=== PATIENT | male | born 1950 | race Caucasian/White ===

== ENCOUNTER 2017-05-09 17:22 | Inpatient (IN) | payer MEDICARE ==
[~2017-05-09] VITALS: Ht 190.5 cm; Wt 105.8 kg
--- NOTE | 2017-05-09 17:48 | EKG ---
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
--- NOTE | 2017-05-09 17:49 | PHYS DOC ---
General Chief Complaint: PSYCH EVALUATION Stated Complaint: PSYCH EVALUATION Time Seen by MD: 17:26 Source: patient, family Exam Limitations: no limitations Problems: (CATALINA LEON DO) Time Seen by MD: 18:10 Problems: (TATY PAL MD) History of Present Illness Initial Comments Patient is a 66-year-old male brought to the ED by his spouse for medical clearance and possible [facility] admission. Patient's spouse is his DPOA, she reports that he's just been released from incarceration for assaulting her and their daughter. She has brought the patient for testing to see if there might be an underlying treatable psychiatric condition to explain this behavior. The patient is unaware of why he 's been brought here but he is calm and cooperative at least initially in the emergency department. He is in no apparent distress and denies any complaints. Timing/Duration: other Severity: severe Modifying Factors: improves with other Associated Symptoms: denies symptoms (CATALINA LEON DO) Allergies: Coded Allergies: No Known Drug Allergies (Unverified , 05/09/17) Past Medical History Medical History: other (Alzheimer's dementia) Surgical History: noncontributory (CATALINA LEON DO) Social History Smoker: non-smoker Alcohol: none Drugs: none (CATALINA LEON DO) Review of Systems Constitutional: denies chills, denies fever Respiratory: denies cough, denies shortness of breath Cardiovascular: denies chest pain, denies syncope Gastrointestinal: denies diarrhea, denies vomiting Musculoskeletal: denies back pain, denies neck pain Psychiatric/Neurological: see HPI, denies headache, denies paresthesia, denies weakness (CATALINA LEON DO) Physical Exam General Appearance: WD/WN, no apparent distress Eyes: bilateral eye normal inspection, bilateral eye PERRL, bilateral eye EOMI Ear, Nose, Throat: hearing grossly normal, normal ENT inspection Neck: non-tender, supple Respiratory: normal breath sounds, no respiratory distress Cardiovascular: normal peripheral pulses, regular rate, rhythm Gastrointestinal: non tender, soft Back: no CVA tenderness, no vertebral tenderness Neurologic/Psychiatric: 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 1804: Medical clearance workup initiated, results are not back at the end of my shift. Patient will be signed out to Dr. Borges, see her documentation for further results and the patient's disposition. (CATALINA LEON DO) Orders, Labs, Meds Assumed care from Dr. Leon at 1800. Labs as above were unremarkable. Patient accepted to [facility] by Dr. Vazquez. The patient is being transferred for admission & he is in stable condition. Taty Pal MD (TATY PAL MD) CATALINA LEON DO May 09, 2017 17:49 TATY PAL MD May 09, 2017 19:37
[2017-05-09 18:03] LABS: BASO # 0.1 x10^3/uL (0.0-0.2); BASO % 1 % (0-3); EOS # 0.1 x10^3/uL (0.0-0.7); EOS % 1 % (0-3); HEMATOCRIT 44.9 % (39.0-53.0); HEMOGLOBIN 15.4 g/dL (13.0-17.5); LYMPH # 1.6 x10^3/uL (1.0-4.8); LYMPH % 16 % (24-48); MEAN CORPUSCULAR HEMOGLOBIN 29 pg (25-35); MEAN CORPUSCULAR HGB CONC 34 g/dL (31-37); MEAN CORPUSCULAR VOLUME 84 fL (79-100); MONO # 0.6 x10^3/uL (0.0-1.1); MONO % 6 % (0-9); NEUT # 7.6 x10^3uL (1.8-7.7); NEUT % 76 % (31-73); PLATELET COUNT 337 x10^3/uL (140-400); RED BLOOD COUNT 5.34 x10^6/uL (4.30-5.70); RED CELL DISTRIBUTION WIDTH 13.9 % (11.5-14.5)
[2017-05-09 18:14] LABS: ALBUMIN 3.6 g/dL (3.4-5.0); ALBUMIN/GLOBULIN RATIO 0.8 (1.0-1.7); CALCIUM 9.2 mg/dL (8.5-10.1); CREATININE 1.2 mg/dL (0.7-1.3); GFR 60.4; POTASSIUM 4.1 mmol/L (3.5-5.1); TOTAL BILIRUBIN 0.5 mg/dL (0.2-1.0); TOTAL PROTEIN 8.1 g/dL (6.4-8.2)
[2017-05-09 19:20] LABS: AMPHETAMINE/METHAMPHETAMINE NEG (NEG); BARBITURATES NEG (NEG); BENZODIAZEPINES NEG (NEG); CANNABINOIDS NEG (NEG); COCAINE NEG (NEG); METHADONE NEG (NEG); OPIATES NEG (NEG); PHENCYCLIDINE NEG (NEG)
[2017-05-09 19:38] LABS: BILIRUBIN,URINE NEG (NEG); CLARITY,URINE HAZY; COLOR,URINE AMBER; GLUCOSE,URINE NEG (NEG); NITRITE,URINE NEG (NEG); UROBILINOGEN,URINE 0.2 mg/dL (0.2 mg/dL)
[2017-05-09 19:39] LABS: BACTERIA,URINE 0 /HPF (0-FEW); RBC,URINE OCC /HPF (0-2); SQUAMOUS EPITHELIAL CELL,UR FEW /LPF
[2017-05-09 20:07] VITALS: BP 154/73
[2017-05-09] MEDS ORDERED: ACETAMINOPHEN 325 MG TABLET PO PRN (23:00)
[2017-05-09] MEDS ORDERED: MAG HYDROX/AL HYDROX/SIMETH 30 ML ORAL.SUSP PO PRN (23:00)
[2017-05-09] MEDS ORDERED: METHYL SALICYLATE/MENTHOL TOPICAL OINTMENT 29GM TUBE. TP PRN (23:00)
[2017-05-09] MEDS ORDERED: MAGNESIUM HYDROXIDE 2,400 MG/30 ML ORAL.SUSP. PO PRN (23:00)
[2017-05-10] MEDS ORDERED: RIVA1PAT23 TD (00:58)
[2017-05-10] MEDS ORDERED: MEMA10TA PO (00:58)
[2017-05-10] MEDS ORDERED: QUET100T4 PO (00:58)
[2017-05-10] MEDS ORDERED: ESCITALOPRAM OX10 MG PO (00:58)
[2017-05-10] MEDS ORDERED: DIVA500T2 PO (00:58)
[2017-05-10] MEDS ORDERED: QUET50TA5 PO (00:58)
[2017-05-10 06:11] VITALS: BP 148/67
--- NOTE | 2017-05-10 14:17 | HP ---
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 He lives at home with his and was admitted via the ER from [facility]. Apparently, he has been having increase in his anger and pushing and shoving his and daughter. Day before yesterday the family called 911, police came, he was handcuffed and sent to group home. He spent the night in group home and the police came and told them something had to be done as far as him being in group home. So they brought him for evaluation to the Senior Behavioral Unit. 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 ALLERGIES: None. MEDICATIONS: Exelon 13.3 mg daily, Namenda 10 mg twice a day, Seroquel 50 mg daily, Seroquel 100 mg at bedtime, Lexapro 10 mg daily, Depakote 500 mg twice a day. IMMUNIZATIONS: The patient refused pneumonia and flu shot. SOCIAL HISTORY: The patient had numerous jobs including working for [employer] for many years, he stopped working in 2005. He no longer drives. Does not smoke or drink. He did graduate from [employer] in [place], [place] and has an extensive football playing history. REVIEW OF SYSTEMS: Other than some bilateral knee pain which is chronic from football playing, he has no specific complaints. 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 OBJECTIVE: VITAL SIGNS: Blood pressure 148/67, pulse 81, respirations 16, temperature 98.6, pulse ox 96% on room air. Yesterday's blood pressure 126/55. Height is 75 inches, weight 229.19 pounds. GENERAL: Very tall gentleman, in no acute distress. Very calm, very cooperative. HEENT: Hearing is intact. Eyes were clear. Vision is intact. He is color-blind. Nose was patent. His throat was clear. NECK: Supple. LUNGS: Clear to auscultation. CARDIOVASCULAR: Regular rhythm and rate. ABDOMEN: Soft, nontender. EXTREMITIES: Without edema. MUSCULOSKELETAL: Extensive osteoarthritic changes of both knees noted. He passes get up and go test, ambulates without difficulty. NEUROLOGIC: Cranial nerves are intact. Cognitive ability, the patient's remote memory is excellent. His short term memory is not. LABORATORY DATA: CBC is normal. Chemistry is essentially normal. Urinalysis, negative. Drug screen, negative. ASSESSMENT: 1. A 66-year-old male with anger issues and impulse control issues. 2. 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 3. Osteoarthritis of the knees. PLAN: Follow along with Dr. Vazquez. Treat his medical conditions. PERCY ANSARI DO DR: ROBIN/abdoulaye JOB#: [id number] / [id number]
[2017-05-10 14:36] LABS: THYROID STIM HORMONE (TSH) 1.507 uIU/mL (0.358-3.740)
[2017-05-10 16:07] VITALS: BP 109/65
--- NOTE | 2017-05-10 18:27 | PDOC ---
Exam Note: Zeb Note: Please also refer to the separate dictated note~for this date of service dictated separately.~Patient seen individually. Discussed the patient with Nursing staff reviewed the chart.~Reviewed interim history and current functioning. Reviewed vital signs,~Labs/ Radiology~and current medications noted below. Continue current treatment with the changes noted in the dictated addendum note Assessment: Vital Signs: Vital Signs Date Time Temp Pulse Resp B/P (MAP) Pulse Ox O2 Delivery O2 Flow Rate FiO2 05/10/17 16:07 97.5 61 20 109/65 (80) 99 Room Air I&O Intake and Output 05/10/17 07:00 Intake Total 120 ml Balance 120 ml Intake Oral 120 ml # Bowel Movements 1 Current Medications: Meds: Current Medications Olanzapine (ZyPREXA ZYDIS) 2.5 mg PRN Q2HR PRN PO psychosis/ agitation; Start 05/09/17 at 21:30 Acetaminophen (Tylenol) 650 mg PRN Q6HRS PRN PO PAIN / TEMP; Start 05/09/17 at 23:00 Multi-Ingredient Ointment (Analgesic [place]) 1 denise PRN QID PRN TP MUSCLE PAIN; Start 05/09/17 at 23:00 Al Hydroxide/Mg Hydroxide (Mylanta Plus Xs) 15 ml PRN AFTMEALHC PRN PO DYSPEPSIA; Start 05/09/17 at 23:00 Magnesium Hydroxide (Milk Of Magnesia) 2,400 mg PRN QHS PRN PO CONSTIPATION; Start 05/09/17 at 23:00 Memantine (Namenda) 10 mg BID PO ; Start 05/10/17 at 21:00 Quetiapine Fumarate (SEROquel) 50 mg DAILY PO ; Start 05/11/17 at 09:00 Quetiapine Fumarate (SEROquel) 100 mg HS PO ; Start 05/10/17 at 21:00 Rivastigmine (Exelon 13.3mg) 1 patch DAILY TD ; Start 05/11/17 at 09:00 Divalproex Sodium (Depakote Er) 500 mg BID PO ; Start 05/10/17 at 21:00 Citalopram Hydrobromide (CeleXA) 20 mg DAILY PO ; Start 05/11/17 at 09:00 Active Scripts Active Reported EXELON 9.5mg/24hr (Rivastigmine) 1 Each Patch.td24 13.3 Patch TD DAILY Depakote (Divalproex Sodium) 500 Mg Tablet.dr 500 Mg PO BID Escitalopram Oxalate 10 Mg Tablet 10 Mg PO DAILY Seroquel (Quetiapine Fumarate) 100 Mg Tablet 100 Mg PO HS Seroquel (Quetiapine Fumarate) 50 Mg Tablet 50 Mg PO DAILY Namenda (Memantine Hcl) 10 Mg Tablet 10 Mg PO BID I have reviewed the current psychotropics carefully including drug interactions. Risk benefit ratio favors no change other than as noted in my dictated progress note. 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
--- NOTE | 2017-05-10 20:02 | PDOC ---
Exam Note: Zeb Note: Please also refer to the separate dictated note~for this date of service dictated separately.~Patient seen individually. Discussed the patient with Nursing staff reviewed the chart.~Reviewed interim history and current functioning. Reviewed vital signs,~Labs/ Radiology~and current medications noted below. Continue current treatment with the changes noted in the dictated addendum note Assessment: Vital Signs: Vital Signs Date Time Temp Pulse Resp B/P (MAP) Pulse Ox O2 Delivery O2 Flow Rate FiO2 05/10/17 16:07 97.5 61 20 109/65 (80) 99 Room Air I&O Intake and Output 05/10/17 07:00 Intake Total 120 ml Balance 120 ml Intake Oral 120 ml # Bowel Movements 1 Current Medications: Meds: Current Medications Olanzapine (ZyPREXA ZYDIS) 2.5 mg PRN Q2HR PRN PO psychosis/ agitation; Start 05/09/17 at 21:30 Acetaminophen (Tylenol) 650 mg PRN Q6HRS PRN PO PAIN / TEMP; Start 05/09/17 at 23:00 Multi-Ingredient Ointment (Analgesic [place]) 1 denise PRN QID PRN TP MUSCLE PAIN; Start 05/09/17 at 23:00 Al Hydroxide/Mg Hydroxide (Mylanta Plus Xs) 15 ml PRN AFTMEALHC PRN PO DYSPEPSIA; Start 05/09/17 at 23:00 Magnesium Hydroxide (Milk Of Magnesia) 2,400 mg PRN QHS PRN PO CONSTIPATION; Start 05/09/17 at 23:00 Memantine (Namenda) 10 mg BID PO ; Start 05/10/17 at 21:00 Quetiapine Fumarate (SEROquel) 50 mg DAILY PO ; Start 05/11/17 at 09:00 Quetiapine Fumarate (SEROquel) 100 mg HS PO ; Start 05/10/17 at 21:00 Rivastigmine (Exelon 13.3mg) 1 patch DAILY TD ; Start 05/11/17 at 09:00 Divalproex Sodium (Depakote Er) 500 mg BID PO ; Start 05/10/17 at 21:00 Citalopram Hydrobromide (CeleXA) 20 mg DAILY PO ; Start 05/11/17 at 09:00 Active Scripts Active Reported EXELON 9.5mg/24hr (Rivastigmine) 1 Each Patch.td24 13.3 Patch TD DAILY Depakote (Divalproex Sodium) 500 Mg Tablet.dr 500 Mg PO BID Escitalopram Oxalate 10 Mg Tablet 10 Mg PO DAILY Seroquel (Quetiapine Fumarate) 100 Mg Tablet 100 Mg PO HS Seroquel (Quetiapine Fumarate) 50 Mg Tablet 50 Mg PO DAILY Namenda (Memantine Hcl) 10 Mg Tablet 10 Mg PO BID I have reviewed the current psychotropics carefully including drug interactions. Risk benefit ratio favors no change other than as noted in my dictated progress note. Diagnosis: Problems: (1) Dementia with behavioral disturbance (2) Anxiety disorder (3) Impulse control disorder (4) Dementia, vascular, with depression (5) Dementia, vascular, with delusions (6) Dementia in Alzheimer's disease with delusions (7) Dementia due to head trauma MALENA ERVIN MD May 10, 2017 20:02
[2017-05-10 20:14] LABS: T3 TOTAL 108 ng/dL (71-180); THYROXINE 7.4 ug/dL (4.5-12.0)
[2017-05-10] MEDS: QUEtiapine 100 MG TABLET. PO SCH (20:47)
[2017-05-10] MEDS: MEMANTINE 10 MG TABLET. PO SCH (20:47)
[2017-05-10] MEDS: DIVALPROEX 125 MG CAP.SPRINK PO SCH (20:47)
[2017-05-10] MEDS ORDERED: DIVALPROEX ER 500 MG TAB.ER.24H PO SCH (21:00)
--- NOTE | 2017-05-10 21:24 | HP ---
ADMIT DATE: 05/10/2017 PSYCHIATRIC ADMISSION HISTORY/EVALUATION This note covers elements not covered in my initial note of 05/10/2017. IDENTIFYING DATA: The patient is a 66-year-old male referred to us from the Emergency Room at [facility] where he presented from having spent overnight in [facility] after police were called to the home and the patient was pushing and shoving his and daughter. Family had called 911 and he was taken to [facility] then brought here. 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 He has been paranoid, delusional, suspicious, and aggressive. He has failed outpatient psychiatric interventions resulting in this referral. CHIEF COMPLAINT: "I don't get angry unless there is a reason to. I know there could be two sides to it." HISTORY OF PRESENT ILLNESS: The patient has a history of chronic traumatic encephalopathy. He has been residing at home with his and daughter, and more recently getting paranoid, extremely labile, irritable, angry, aggressive, disruptive. No clear history of bipolar disorder, suicidal or homicidal ideation. Memory especially for short term events is progressively worsening. PAST PSYCHIATRIC HISTORY: As above. The patient has seen Dr. Casey Wilson in the past for outpatient psychiatric care. PAST MEDICAL HISTORY: Positive for knee scopes, right bicep tendon repair, mastoidectomy. ACCU-CHEKS: None. DRUG ALLERGIES: Negative. CODE STATUS: Full code. Ambulates unassisted. UA is negative. CURRENT PSYCHOTROPICS: Exelon patch 13.3 mg a day, Namenda 10 mg b.i.d., Seroquel 50 mg daily and 100 mg at bedtime, Lexapro 10 mg a day, Depakote 500 mg b.i.d., Zyprexa was added p.r.n. FAMILY HISTORY: Noncontributory. SOCIAL HISTORY: Noted. 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 No alcohol or drug abuse history. No physical, sexual, or elder abuse history. Not known to be a perpetrator. REACTION TO HOSPITALIZATION: The patient accepting of it. ASSETS: Supportive family. MENTAL STATUS EXAMINATION: The patient was seen individually evening of 05/10/2017. He thought he was in [place], [place]. Knew the year was 2016, unaware of the month or the date. Able to spell world, forward no error, backward no errors. Able to do five steps and serial 7's. Short term memory nevertheless is impaired. Speech coherent. Thought processes goal directed. Mood somewhat dysphoric, suspicious. No active suicidal or homicidal ideation. Valproic acid level is awaited. 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 Rest unchanged as above. PLAN: Admit to Geropsychiatry Unit at [facility]. I will see the patient daily individually from a psychiatric standpoint, continue current psychotropics, observe baseline, get records from Dr. Wilson. Make further adjustments as clinically indicated. MAN Ajay ERVIN MD DR: BRANDY/abdoulaye JOB#: [id number] / [id number]
[2017-05-11 05:10] LABS: HEMOGLOBIN A1C 5.4 % (4.8-5.6)
[2017-05-11 06:04] VITALS: BP 134/73
[2017-05-11] MEDS: MEMANTINE 10 MG TABLET. PO SCH ×2 (08:25→19:55)
[2017-05-11] MEDS: DIVALPROEX 125 MG CAP.SPRINK PO SCH ×2 (08:25→19:55)
[2017-05-11] MEDS: CITALOPRAM 20 MG TABLET. PO SCH (08:29)
[2017-05-11] MEDS: QUEtiapine 50 MG TABLET. PO SCH (08:29)
[2017-05-11] MEDS: RIVASTIGMINE 13.3MG PATCH. TD SCH (08:29)
[2017-05-11 16:05] VITALS: BP 126/72
--- NOTE | 2017-05-11 17:55 | PDOC ---
Exam Note: Zeb Note: Please also refer to the separate dictated note~for this date of service dictated separately.~Patient seen individually. Discussed the patient with Nursing staff reviewed the chart.~Reviewed interim history and current functioning. Reviewed vital signs,~Labs/ Radiology~and current medications noted below. Continue current treatment with the changes noted in the dictated addendum note Assessment: Vital Signs: Vital Signs Date Time Temp Pulse Resp B/P (MAP) Pulse Ox O2 Delivery O2 Flow Rate FiO2 05/11/17 16:05 97.2 70 20 126/72 (90) 97 05/10/17 16:07 Room Air I&O Intake and Output 05/11/17 06:59 Intake Total 1080 ml Balance 1080 ml Intake Oral 1080 ml Current Medications: Meds: Current Medications Olanzapine (ZyPREXA ZYDIS) 2.5 mg PRN Q2HR PRN PO psychosis/ agitation; Start 05/09/17 at 21:30 Acetaminophen (Tylenol) 650 mg PRN Q6HRS PRN PO PAIN / TEMP; Start 05/09/17 at 23:00 Multi-Ingredient Ointment (Analgesic [place]) 1 denise PRN QID PRN TP MUSCLE PAIN; Start 05/09/17 at 23:00 Al Hydroxide/Mg Hydroxide (Mylanta Plus Xs) 15 ml PRN AFTMEALHC PRN PO DYSPEPSIA; Start 05/09/17 at 23:00 Magnesium Hydroxide (Milk Of Magnesia) 2,400 mg PRN QHS PRN PO CONSTIPATION; Start 05/09/17 at 23:00 Memantine (Namenda) 10 mg BID PO Last administered on 05/11/17 08:25; Start 05/10/17 at 21:00 Quetiapine Fumarate (SEROquel) 50 mg DAILY PO Last administered on 05/11/17 08:29; Start 05/11/17 at 09:00 Quetiapine Fumarate (SEROquel) 100 mg HS PO Last administered on 05/10/17 20: 47; Start 05/10/17 at 21:00 Rivastigmine (Exelon 13.3mg) 1 patch DAILY TD Last administered on 05/11/17 08:29; Start 05/11/17 at 09:00 Divalproex Sodium (Depakote Er) 500 mg BID PO ; Start 05/10/17 at 21:00; Stop 05/10/17 at 21:00; Status DC Citalopram Hydrobromide (CeleXA) 20 mg DAILY PO Last administered on 08:29; Start 05/11/17 at 09:00 Divalproex Sodium (Depakote Sprinkles) 500 mg BID PO Last administered on 05/11 08:25; Start 05/10/17 at 21:00 Vitamin D (Vitamin D3) 2,000 unit DAILY PO ; Start 05/12/17 at 09:00 Active Scripts Active Reported EXELON 9.5mg/24hr (Rivastigmine) 1 Each Patch.td24 13.3 Patch TD DAILY Depakote (Divalproex Sodium) 500 Mg Tablet.dr 500 Mg PO BID Escitalopram Oxalate 10 Mg Tablet 10 Mg PO DAILY Seroquel (Quetiapine Fumarate) 100 Mg Tablet 100 Mg PO HS Seroquel (Quetiapine Fumarate) 50 Mg Tablet 50 Mg PO DAILY Namenda (Memantine Hcl) 10 Mg Tablet 10 Mg PO BID I have reviewed the current psychotropics carefully including drug interactions. Risk benefit ratio favors no change other than as noted in my dictated progress note. 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
[2017-05-11] MEDS: QUEtiapine 100 MG TABLET. PO SCH (19:56)
--- NOTE | 2017-05-11 19:59 | PDOC ---
Exam Note: Zeb Note: Please also refer to the separate dictated note~for this date of service dictated separately.~Patient seen individually. Discussed the patient with Nursing staff reviewed the chart.~Reviewed interim history and current functioning. Reviewed vital signs,~Labs/ Radiology~and current medications noted below. Continue current treatment with the changes noted in the dictated addendum note Assessment: Vital Signs: Vital Signs Date Time Temp Pulse Resp B/P (MAP) Pulse Ox O2 Delivery O2 Flow Rate FiO2 05/11/17 16:05 97.2 70 20 126/72 (90) 97 05/10/17 16:07 Room Air I&O Intake and Output 05/11/17 07:00 Intake Total 1080 ml Balance 1080 ml Intake Oral 1080 ml Current Medications: Meds: Current Medications Olanzapine (ZyPREXA ZYDIS) 2.5 mg PRN Q2HR PRN PO psychosis/ agitation; Start 05/09/17 at 21:30 Acetaminophen (Tylenol) 650 mg PRN Q6HRS PRN PO PAIN / TEMP; Start 05/09/17 at 23:00 Multi-Ingredient Ointment (Analgesic [place]) 1 denise PRN QID PRN TP MUSCLE PAIN; Start 05/09/17 at 23:00 Al Hydroxide/Mg Hydroxide (Mylanta Plus Xs) 15 ml PRN AFTMEALHC PRN PO DYSPEPSIA; Start 05/09/17 at 23:00 Magnesium Hydroxide (Milk Of Magnesia) 2,400 mg PRN QHS PRN PO CONSTIPATION; Start 05/09/17 at 23:00 Memantine (Namenda) 10 mg BID PO Last administered on 05/11/17 19:55; Start 05/10/17 at 21:00 Quetiapine Fumarate (SEROquel) 50 mg DAILY PO Last administered on 05/11/17 08:29; Start 05/11/17 at 09:00 Quetiapine Fumarate (SEROquel) 100 mg HS PO Last administered on 05/11/17 19: 56; Start 05/10/17 at 21:00 Rivastigmine (Exelon 13.3mg) 1 patch DAILY TD Last administered on 05/11/17 08:29; Start 05/11/17 at 09:00 Divalproex Sodium (Depakote Er) 500 mg BID PO ; Start 05/10/17 at 21:00; Stop 05/10/17 at 21:00; Status DC Citalopram Hydrobromide (CeleXA) 20 mg DAILY PO Last administered on 08:29; Start 05/11/17 at 09:00 Divalproex Sodium (Depakote Sprinkles) 500 mg BID PO Last administered on 05/11 19:55; Start 05/10/17 at 21:00 Vitamin D (Vitamin D3) 2,000 unit DAILY PO ; Start 05/12/17 at 09:00 Buspirone HCl (Buspar) 5 mg BID92 PO ; Start 05/12/17 at 09:00 Active Scripts Active Reported EXELON 9.5mg/24hr (Rivastigmine) 1 Each Patch.td24 13.3 Patch TD DAILY Depakote (Divalproex Sodium) 500 Mg Tablet.dr 500 Mg PO BID Escitalopram Oxalate 10 Mg Tablet 10 Mg PO DAILY Seroquel (Quetiapine Fumarate) 100 Mg Tablet 100 Mg PO HS Seroquel (Quetiapine Fumarate) 50 Mg Tablet 50 Mg PO DAILY Namenda (Memantine Hcl) 10 Mg Tablet 10 Mg PO BID I have reviewed the current psychotropics carefully including drug interactions. Risk benefit ratio favors no change other than as noted in my dictated progress note. 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
[2017-05-12 06:09] VITALS: BP 138/71
[2017-05-12 07:54] LABS: VAL ACID 38 mcg/mL (50-100)
[2017-05-12] MEDS: DIVALPROEX 125 MG CAP.SPRINK PO SCH ×2 (09:40→20:13)
[2017-05-12] MEDS: QUEtiapine 50 MG TABLET. PO SCH (09:40)
[2017-05-12] MEDS: MEMANTINE 10 MG TABLET. PO SCH ×2 (09:40→20:12)
[2017-05-12] MEDS: busPIRone 5 MG TABLET. PO SCH ×2 (09:40→13:42)
[2017-05-12] MEDS: CHOLECALCIFEROL (VITAMIN D3) 1,000 UNIT TABLET PO SCH (09:40)
[2017-05-12] MEDS: CITALOPRAM 20 MG TABLET. PO SCH (09:40)
[2017-05-12] MEDS: RIVASTIGMINE 13.3MG PATCH. TD SCH (09:46)
[2017-05-12 15:55] VITALS: BP 125/70
--- NOTE | 2017-05-12 19:08 | PDOC ---
Exam Note: Zeb Note: Please also refer to the separate dictated note~for this date of service dictated separately.~Patient seen individually. Discussed the patient with Nursing staff reviewed the chart.~Reviewed interim history and current functioning. Reviewed vital signs,~Labs/ Radiology~and current medications noted below. Continue current treatment with the changes noted in the dictated addendum note Assessment: Vital Signs: Vital Signs Date Time Temp Pulse Resp B/P (MAP) Pulse Ox O2 Delivery O2 Flow Rate FiO2 05/12/17 15:55 98.7 72 16 125/70 (88) 97 05/10/17 16:07 Room Air I&O Intake and Output 05/12/17 06:59 Intake Total 1440 ml Balance 1440 ml Intake Oral 1440 ml Labs: Laboratory Tests Test 05/12/17 07:28 Valproic Acid Level 38 mcg/mL (50-100) L Valproic Acid Last Dose Date 05/11/17 Valproic Acid Last Dose Time 2100 Current Medications: Meds: Current Medications Olanzapine (ZyPREXA ZYDIS) 2.5 mg PRN Q2HR PRN PO psychosis/ agitation; Start 05/09/17 at 21:30 Acetaminophen (Tylenol) 650 mg PRN Q6HRS PRN PO PAIN / TEMP; Start 05/09/17 at 23:00 Multi-Ingredient Ointment (Analgesic [place]) 1 denise PRN QID PRN TP MUSCLE PAIN; Start 05/09/17 at 23:00 Al Hydroxide/Mg Hydroxide (Mylanta Plus Xs) 15 ml PRN AFTMEALHC PRN PO DYSPEPSIA; Start 05/09/17 at 23:00 Magnesium Hydroxide (Milk Of Magnesia) 2,400 mg PRN QHS PRN PO CONSTIPATION; Start 05/09/17 at 23:00 Memantine (Namenda) 10 mg BID PO Last administered on 05/12/17 09:40; Start 05/10/17 at 21:00 Quetiapine Fumarate (SEROquel) 50 mg DAILY PO Last administered on 05/12/17 09:40; Start 05/11/17 at 09:00 Quetiapine Fumarate (SEROquel) 100 mg HS PO Last administered on 05/11/17 19: 56; Start 05/10/17 at 21:00 Rivastigmine (Exelon 13.3mg) 1 patch DAILY TD Last administered on 05/12/17 09:46; Start 05/11/17 at 09:00 Divalproex Sodium (Depakote Er) 500 mg BID PO ; Start 05/10/17 at 21:00; Stop 05/10/17 at 21:00; Status DC Citalopram Hydrobromide (CeleXA) 20 mg DAILY PO Last administered on 09:40; Start 05/11/17 at 09:00 Divalproex Sodium (Depakote Sprinkles) 500 mg BID PO Last administered on 05/12 09:40; Start 05/10/17 at 21:00; Stop 05/12/17 at 18:43; Status DC Vitamin D (Vitamin D3) 2,000 unit DAILY PO Last administered on 05/12/17 09: 40; Start 05/12/17 at 09:00 Buspirone HCl (Buspar) 5 mg BID92 PO Last administered on 05/12/17 13:42; Start 05/12/17 at 09:00 Divalproex Sodium (Depakote Sprinkles) 750 mg BID PO ; Start 05/12/17 at 21:00 Active Scripts Active Reported EXELON 9.5mg/24hr (Rivastigmine) 1 Each Patch.td24 13.3 Patch TD DAILY Depakote (Divalproex Sodium) 500 Mg Tablet.dr 500 Mg PO BID Escitalopram Oxalate 10 Mg Tablet 10 Mg PO DAILY Seroquel (Quetiapine Fumarate) 100 Mg Tablet 100 Mg PO HS Seroquel (Quetiapine Fumarate) 50 Mg Tablet 50 Mg PO DAILY Namenda (Memantine Hcl) 10 Mg Tablet 10 Mg PO BID I have reviewed the current psychotropics carefully including drug interactions. Risk benefit ratio favors no change other than as noted in my dictated progress note. 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
[2017-05-12] MEDS: QUEtiapine 100 MG TABLET. PO SCH (20:12)
[2017-05-13 06:09] VITALS: BP 108/61
[2017-05-13] MEDS: busPIRone 5 MG TABLET. PO SCH ×2 (08:42→14:24)
[2017-05-13] MEDS: CITALOPRAM 20 MG TABLET. PO SCH (08:42)
[2017-05-13] MEDS: CHOLECALCIFEROL (VITAMIN D3) 1,000 UNIT TABLET PO SCH (08:42)
[2017-05-13] MEDS: QUEtiapine 50 MG TABLET. PO SCH (08:42)
[2017-05-13] MEDS: MEMANTINE 10 MG TABLET. PO SCH ×2 (08:42→20:27)
[2017-05-13] MEDS: DIVALPROEX 125 MG CAP.SPRINK PO SCH ×2 (08:42→20:26)
[2017-05-13] MEDS: RIVASTIGMINE 13.3MG PATCH. TD SCH (08:43)
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
[2017-05-13 16:01] VITALS: BP 133/77
--- NOTE | 2017-05-13 20:25 | PDOC ---
Exam Note: Zeb Note: Please also refer to the separate dictated note~for this date of service dictated separately.~Patient seen individually. Discussed the patient with Nursing staff reviewed the chart.~Reviewed interim history and current functioning. Reviewed vital signs,~Labs/ Radiology~and current medications noted below. Continue current treatment with the changes noted in the dictated addendum note Assessment: Vital Signs: Vital Signs Date Time Temp Pulse Resp B/P (MAP) Pulse Ox O2 Delivery O2 Flow Rate FiO2 05/13/17 16:01 98.3 73 16 133/77 (95) 97 05/10/17 16:07 Room Air I&O Intake and Output 05/13/17 07:00 Intake Total 1085 ml Balance 1085 ml Intake Oral 1085 ml Current Medications: Meds: Current Medications Olanzapine (ZyPREXA ZYDIS) 2.5 mg PRN Q2HR PRN PO psychosis/ agitation; Start 05/09/17 at 21:30 Acetaminophen (Tylenol) 650 mg PRN Q6HRS PRN PO PAIN / TEMP; Start 05/09/17 at 23:00 Multi-Ingredient Ointment (Analgesic [place]) 1 denise PRN QID PRN TP MUSCLE PAIN; Start 05/09/17 at 23:00 Al Hydroxide/Mg Hydroxide (Mylanta Plus Xs) 15 ml PRN AFTMEALHC PRN PO DYSPEPSIA; Start 05/09/17 at 23:00 Magnesium Hydroxide (Milk Of Magnesia) 2,400 mg PRN QHS PRN PO CONSTIPATION; Start 05/09/17 at 23:00 Memantine (Namenda) 10 mg BID PO Last administered on 05/13/17 08:42; Start 05/10/17 at 21:00 Quetiapine Fumarate (SEROquel) 50 mg DAILY PO Last administered on 05/13/17 08:42; Start 05/11/17 at 09:00 Quetiapine Fumarate (SEROquel) 100 mg HS PO Last administered on 05/12/17 20: 12; Start 05/10/17 at 21:00 Rivastigmine (Exelon 13.3mg) 1 patch DAILY TD Last administered on 05/13/17 08:43; Start 05/11/17 at 09:00 Divalproex Sodium (Depakote Er) 500 mg BID PO ; Start 05/10/17 at 21:00; Stop 05/10/17 at 21:00; Status DC Citalopram Hydrobromide (CeleXA) 20 mg DAILY PO Last administered on 08:42; Start 05/11/17 at 09:00 Divalproex Sodium (Depakote Sprinkles) 500 mg BID PO Last administered on 05/12 09:40; Start 05/10/17 at 21:00; Stop 05/12/17 at 18:43; Status DC Vitamin D (Vitamin D3) 2,000 unit DAILY PO Last administered on 05/13/17 08: 42; Start 05/12/17 at 09:00 Buspirone HCl (Buspar) 5 mg BID92 PO Last administered on 05/13/17 14:24; Start 05/12/17 at 09:00 Divalproex Sodium (Depakote Sprinkles) 750 mg BID PO Last administered on 05/13 08:42; Start 05/12/17 at 21:00 Active Scripts Active Reported EXELON 9.5mg/24hr (Rivastigmine) 1 Each Patch.td24 13.3 Patch TD DAILY Depakote (Divalproex Sodium) 500 Mg Tablet.dr 500 Mg PO BID Escitalopram Oxalate 10 Mg Tablet 10 Mg PO DAILY Seroquel (Quetiapine Fumarate) 100 Mg Tablet 100 Mg PO HS Seroquel (Quetiapine Fumarate) 50 Mg Tablet 50 Mg PO DAILY Namenda (Memantine Hcl) 10 Mg Tablet 10 Mg PO BID I have reviewed the current psychotropics carefully including drug interactions. Risk benefit ratio favors no change other than as noted in my dictated progress note. 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
[2017-05-13] MEDS: QUEtiapine 100 MG TABLET. PO SCH (20:26)
[2017-05-14 06:23] VITALS: BP 111/67
[2017-05-14] MEDS: busPIRone 5 MG TABLET. PO SCH ×2 (09:24→14:30)
[2017-05-14] MEDS: MEMANTINE 10 MG TABLET. PO SCH ×2 (09:24→20:29)
[2017-05-14] MEDS: DIVALPROEX 125 MG CAP.SPRINK PO SCH ×2 (09:24→20:29)
[2017-05-14] MEDS: CITALOPRAM 20 MG TABLET. PO SCH (09:24)
[2017-05-14] MEDS: QUEtiapine 50 MG TABLET. PO SCH (09:24)
[2017-05-14] MEDS: CHOLECALCIFEROL (VITAMIN D3) 1,000 UNIT TABLET PO SCH (09:25)
[2017-05-14] MEDS: RIVASTIGMINE 13.3MG PATCH. TD SCH (09:25)
--- NOTE | 2017-05-14 09:41 | PN ---
DATE: 05/12/2017 This late entry, 05/12/2017, covers elements not covered in my initial note of 05/12/2017. SUBJECTIVE: I met with the patient the evening of 05/12/2017. Overall, per nursing report, the patient has been calm and cooperative. Reportedly his visited and was reminding him of circumstances that prompted this referral and he said he did not remember it. We processed this with him individually. Insight is limited in this respect. REVIEW OF SYSTEMS: No CV, , pulmonary, eye, ENT system symptoms on review. MENTAL STATUS EXAM: Oriented to himself and situation. Speech coherent, at times a little pressured. Abstraction fair, computation impaired, language function intact. Mood and affect intermittently labile. LABORATORY DATA: Reviewed. IMPRESSION: Major neurocognitive disorder possibly due to trauma versus chronic traumatic encephalopathy, bipolar 1 disorder, mixed. Rest unchanged. PLAN: Valproic acid level is 32 on 05/12/2017 on Depakote 500 mg b.i.d. We will increase the Depakote to 750 mg b.i.d. Check CBC, CMP, valproic acid level in 3 days. Continue rest psychotropics unchanged. MAN Ajay ERVIN MD DR: BRANDY/abdoulaye JOB#: [id number] / [id number]
[2017-05-14 16:10] VITALS: BP 117/70
--- NOTE | 2017-05-14 20:04 | PDOC ---
Exam Note: Zeb Note: Please also refer to the separate dictated note~for this date of service dictated separately.~Patient seen individually. Discussed the patient with Nursing staff reviewed the chart.~Reviewed interim history and current functioning. Reviewed vital signs,~Labs/ Radiology~and current medications noted below. Continue current treatment with the changes noted in the dictated addendum note Assessment: Vital Signs: Vital Signs Date Time Temp Pulse Resp B/P (MAP) Pulse Ox O2 Delivery O2 Flow Rate FiO2 05/14/17 16:10 98.4 74 18 117/70 (86) 99 05/14/17 06:23 Room Air I&O Intake and Output 05/14/17 07:00 Intake Total 1560 ml Balance 1560 ml Intake Oral 1560 ml Current Medications: Meds: Current Medications Olanzapine (ZyPREXA ZYDIS) 2.5 mg PRN Q2HR PRN PO psychosis/ agitation; Start 05/09/17 at 21:30 Acetaminophen (Tylenol) 650 mg PRN Q6HRS PRN PO PAIN / TEMP; Start 05/09/17 at 23:00 Multi-Ingredient Ointment (Analgesic [place]) 1 denise PRN QID PRN TP MUSCLE PAIN; Start 05/09/17 at 23:00 Al Hydroxide/Mg Hydroxide (Mylanta Plus Xs) 15 ml PRN AFTMEALHC PRN PO DYSPEPSIA; Start 05/09/17 at 23:00 Magnesium Hydroxide (Milk Of Magnesia) 2,400 mg PRN QHS PRN PO CONSTIPATION; Start 05/09/17 at 23:00 Memantine (Namenda) 10 mg BID PO Last administered on 05/14/17 09:24; Start at 21:00 Quetiapine Fumarate (SEROquel) 50 mg DAILY PO Last administered on 05/14/17 09: 24; Start 05/11/17 at 09:00 Quetiapine Fumarate (SEROquel) 100 mg HS PO Last administered on 05/13/17t 20: 26; Start 05/10/17 at 21:00 Rivastigmine (Exelon 13.3mg) 1 patch DAILY TD Last administered on 05/14/17 09: 25; Start 05/11/17 at 09:00 Divalproex Sodium (Depakote Er) 500 mg BID PO ; Start 05/10/17 at 21:00; Stop 05/10/17 at 21:00; Status DC Citalopram Hydrobromide (CeleXA) 20 mg DAILY PO Last administered on 05/14/17 09:24; Start 05/11/17 at 09:00 Divalproex Sodium (Depakote Sprinkles) 500 mg BID PO Last administered on 05/12t 09:40; Start 05/10/17 at 21:00; Stop 05/12/17 at 18:43; Status DC Vitamin D (Vitamin D3) 2,000 unit DAILY PO Last administered on 05/14/17 09:25 ; Start 05/12/17 at 09:00 Buspirone HCl (Buspar) 5 mg BID92 PO Last administered on 05/14/17 14:30; Start 05/12/17 at 09:00 Divalproex Sodium (Depakote Sprinkles) 750 mg BID PO Last administered on 09:24; Start 05/12/17 at 21:00 Active Scripts Active Reported EXELON 9.5mg/24hr (Rivastigmine) 1 Each Patch.td24 13.3 Patch TD DAILY Depakote (Divalproex Sodium) 500 Mg Tablet.dr 500 Mg PO BID Escitalopram Oxalate 10 Mg Tablet 10 Mg PO DAILY Seroquel (Quetiapine Fumarate) 100 Mg Tablet 100 Mg PO HS Seroquel (Quetiapine Fumarate) 50 Mg Tablet 50 Mg PO DAILY Namenda (Memantine Hcl) 10 Mg Tablet 10 Mg PO BID I have reviewed the current psychotropics carefully including drug interactions. Risk benefit ratio favors no change other than as noted in my dictated progress note. 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
[2017-05-14] MEDS: QUEtiapine 100 MG TABLET. PO SCH (20:29)
[2017-05-15 06:07] VITALS: BP 107/52
[2017-05-15] MEDS: CITALOPRAM 20 MG TABLET. PO SCH (08:30)
[2017-05-15] MEDS: DIVALPROEX 125 MG CAP.SPRINK PO SCH ×2 (08:30→20:42)
[2017-05-15] MEDS: MEMANTINE 10 MG TABLET. PO SCH ×2 (08:30→20:42)
[2017-05-15] MEDS: CHOLECALCIFEROL (VITAMIN D3) 1,000 UNIT TABLET PO SCH (08:30)
[2017-05-15] MEDS: QUEtiapine 50 MG TABLET. PO SCH (08:31)
[2017-05-15] MEDS: busPIRone 5 MG TABLET. PO SCH ×2 (08:31→14:07)
[2017-05-15] MEDS: RIVASTIGMINE 13.3MG PATCH. TD SCH (08:32)
[2017-05-15 16:03] VITALS: BP 96/60
--- NOTE | 2017-05-15 20:15 | PDOC ---
Exam Note: Zeb Note: Please also refer to the separate dictated note~for this date of service dictated separately.~Patient seen individually. Discussed the patient with Nursing staff reviewed the chart.~Reviewed interim history and current functioning. Reviewed vital signs,~Labs/ Radiology~and current medications noted below. Continue current treatment with the changes noted in the dictated addendum note Assessment: Vital Signs: Vital Signs Date Time Temp Pulse Resp B/P (MAP) Pulse Ox O2 Delivery O2 Flow Rate FiO2 05/15/17 16:03 99.0 74 16 96/60 (72) 100 05/14/17 06:23 Room Air I&O Intake and Output 05/15/17 07:00 Intake Total 1440 ml Balance 1440 ml Intake Oral 1440 ml # Bowel Movements 1 Current Medications: Meds: Current Medications Olanzapine (ZyPREXA ZYDIS) 2.5 mg PRN Q2HR PRN PO psychosis/ agitation; Start 05/09/17 at 21:30 Acetaminophen (Tylenol) 650 mg PRN Q6HRS PRN PO PAIN / TEMP; Start 05/09/17 at 23:00 Multi-Ingredient Ointment (Analgesic [place]) 1 denise PRN QID PRN TP MUSCLE PAIN; Start 05/09/17 at 23:00 Al Hydroxide/Mg Hydroxide (Mylanta Plus Xs) 15 ml PRN AFTMEALHC PRN PO DYSPEPSIA; Start 05/09/17 at 23:00 Magnesium Hydroxide (Milk Of Magnesia) 2,400 mg PRN QHS PRN PO CONSTIPATION; Start 05/09/17 at 23:00 Memantine (Namenda) 10 mg BID PO Last administered on 05/15/17 08:30; Start at 21:00 Quetiapine Fumarate (SEROquel) 50 mg DAILY PO Last administered on 05/15/17 08: 31; Start 05/11/17 at 09:00 Quetiapine Fumarate (SEROquel) 100 mg HS PO Last administered on 05/14/17 20:29 ; Start 05/10/17 at 21:00 Rivastigmine (Exelon 13.3mg) 1 patch DAILY TD Last administered on 05/15/17 08: 32; Start 05/11/17 at 09:00 Divalproex Sodium (Depakote Er) 500 mg BID PO ; Start 05/10/17 at 21:00; Stop 05/10/17 at 21:00; Status DC Citalopram Hydrobromide (CeleXA) 20 mg DAILY PO Last administered on 05/15/17 08:30; Start 05/11/17 at 09:00 Divalproex Sodium (Depakote Sprinkles) 500 mg BID PO Last administered on 05/12t 09:40; Start 05/10/17 at 21:00; Stop 05/12/17 at 18:43; Status DC Vitamin D (Vitamin D3) 2,000 unit DAILY PO Last administered on 05/15/17 08:30 ; Start 05/12/17 at 09:00 Buspirone HCl (Buspar) 5 mg BID92 PO Last administered on 05/15/17 14:07; Start 05/12/17 at 09:00 Divalproex Sodium (Depakote Sprinkles) 750 mg BID PO Last administered on 08:30; Start 05/12/17 at 21:00 Active Scripts Active Reported EXELON 9.5mg/24hr (Rivastigmine) 1 Each Patch.td24 13.3 Patch TD DAILY Depakote (Divalproex Sodium) 500 Mg Tablet.dr 500 Mg PO BID Escitalopram Oxalate 10 Mg Tablet 10 Mg PO DAILY Seroquel (Quetiapine Fumarate) 100 Mg Tablet 100 Mg PO HS Seroquel (Quetiapine Fumarate) 50 Mg Tablet 50 Mg PO DAILY Namenda (Memantine Hcl) 10 Mg Tablet 10 Mg PO BID I have reviewed the current psychotropics carefully including drug interactions. Risk benefit ratio favors no change other than as noted in my dictated progress note. 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
[2017-05-15] MEDS: QUEtiapine 100 MG TABLET. PO SCH (20:42)
[2017-05-16 05:46] VITALS: BP 96/59
[2017-05-16] MEDS: QUEtiapine 50 MG TABLET. PO SCH (08:31)
[2017-05-16] MEDS: DIVALPROEX 125 MG CAP.SPRINK PO SCH ×2 (08:31→19:22)
[2017-05-16] MEDS: MEMANTINE 10 MG TABLET. PO SCH ×2 (08:31→19:22)
[2017-05-16] MEDS: CITALOPRAM 20 MG TABLET. PO SCH (08:31)
[2017-05-16] MEDS: busPIRone 5 MG TABLET. PO SCH ×2 (08:31→13:16)
[2017-05-16] MEDS: CHOLECALCIFEROL (VITAMIN D3) 1,000 UNIT TABLET PO SCH (08:31)
[2017-05-16] MEDS: RIVASTIGMINE 13.3MG PATCH. TD SCH (08:33)
--- NOTE | 2017-05-16 08:45 | PN ---
DATE: 05/13/2017 PSYCHIATRIC PROGRESS NOTE This is a late entry, date of service 05/13/2017, covers elements not covered in my initial note 05/13/2017. SUBJECTIVE: I met with the patient the evening of 05/13/2017. The patient remains withdrawn, , minimizes his aggression at home. REVIEW OF SYSTEMS: No CV, , pulmonary, eye, ENT system symptoms on review. Reliability poor. MENTAL STATUS EXAM: Oriented to himself and situation. Speech coherent, abstraction fair, computation impaired, language function intact, attention span short. Mood and affect remain somewhat overly animated, grandiose at times. LABORATORY DATA: Reviewed. 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 PLAN: Continue psychotropics at current dosage. We will check valproic acid level on 05/17/2017, adjust Depakote thereafter, currently maintain 750 mg b.i.d. MALENA ERVIN MD DR: BRANDY/abdoulaye JOB#: [id number] / [id number]
--- NOTE | 2017-05-16 08:53 | PN ---
DATE: 05/14/2017 This late entry 05/14/2017 covers elements not covered in my initial note of 05/14/2017. Met with the patient in the evening of 05/14/2017. SUBJECTIVE: He is quite animated, grandiose at times. States he only gets angry at his because of things she does not and expects of him. REVIEW OF SYSTEMS: No CV, , pulmonary, eye, ENT system symptoms on review. MENTAL STATUS EXAM: Oriented to himself and situation. Speech coherent. Shaking my hand very strongly. Abstraction fair, computation impaired. Short term memory is impaired. Language function intact. No suicidal or homicidal ideation. Mood lability is improved. LABORATORY DATA: Reviewed. IMPRESSION: Chronic traumatic encephalopathy, major neurocognitive disorders with trauma with delusions, bipolar 1 disorder, mixed with psychotic features. Rest unchanged. PLAN: Continue psychotropics mentioned in my initial note. Check valproic acid level on 05/17/2017, adjust Depakote thereafter. MAN Ajay ERVIN MD DR: BRANDY/abdoulaye JOB#: [id number] / [id number]
[2017-05-16 16:21] VITALS: BP 115/72
[2017-05-16] MEDS: QUEtiapine 100 MG TABLET. PO SCH (19:22)
--- NOTE | 2017-05-16 20:09 | PDOC ---
Exam Note: Zeb Note: Please also refer to the separate dictated note~for this date of service dictated separately.~Patient seen individually. Discussed the patient with Nursing staff reviewed the chart.~Reviewed interim history and current functioning. Reviewed vital signs,~Labs/ Radiology~and current medications noted below. Continue current treatment with the changes noted in the dictated addendum note Assessment: Vital Signs: Vital Signs Date Time Temp Pulse Resp B/P (MAP) Pulse Ox O2 Delivery O2 Flow Rate FiO2 05/16/17 16:21 98.4 76 18 115/72 (86) 98 05/14/17 06:23 Room Air I&O Intake and Output 05/16/17 07:00 Intake Total 1680 ml Balance 1680 ml Intake Oral 1680 ml Current Medications: Meds: Current Medications Olanzapine (ZyPREXA ZYDIS) 2.5 mg PRN Q2HR PRN PO psychosis/ agitation; Start 05/09/17 at 21:30 Acetaminophen (Tylenol) 650 mg PRN Q6HRS PRN PO PAIN / TEMP; Start 05/09/17 at 23:00 Multi-Ingredient Ointment (Analgesic [place]) 1 denise PRN QID PRN TP MUSCLE PAIN; Start 05/09/17 at 23:00 Al Hydroxide/Mg Hydroxide (Mylanta Plus Xs) 15 ml PRN AFTMEALHC PRN PO DYSPEPSIA; Start 05/09/17 at 23:00 Magnesium Hydroxide (Milk Of Magnesia) 2,400 mg PRN QHS PRN PO CONSTIPATION; Start 05/09/17 at 23:00 Memantine (Namenda) 10 mg BID PO Last administered on 05/16/17 19:22; Start at 21:00 Quetiapine Fumarate (SEROquel) 50 mg DAILY PO Last administered on 05/16/17 08: 31; Start 05/11/17 at 09:00 Quetiapine Fumarate (SEROquel) 100 mg HS PO Last administered on 05/16/17 19:22 ; Start 05/10/17 at 21:00 Rivastigmine (Exelon 13.3mg) 1 patch DAILY TD Last administered on 05/16/17 08: 33; Start 05/11/17 at 09:00 Divalproex Sodium (Depakote Er) 500 mg BID PO ; Start 05/10/17 at 21:00; Stop 05/10/17 at 21:00; Status DC Citalopram Hydrobromide (CeleXA) 20 mg DAILY PO Last administered on 05/16/17 08:31; Start 05/11/17 at 09:00; Stop 05/16/17 at 12:45; Status DC Divalproex Sodium (Depakote Sprinkles) 500 mg BID PO Last administered on 05/12t 09:40; Start 05/10/17 at 21:00; Stop 05/12/17 at 18:43; Status DC Vitamin D (Vitamin D3) 2,000 unit DAILY PO Last administered on 05/16/17 08:31 ; Start 05/12/17 at 09:00 Buspirone HCl (Buspar) 5 mg BID92 PO Last administered on 05/16/17 13:16; Start 05/12/17 at 09:00 Divalproex Sodium (Depakote Sprinkles) 750 mg BID PO Last administered on 19:22; Start 05/12/17 at 21:00 Fluvoxamine Maleate (Luvox) 25 mg HS PO Last administered on 05/16/17 19:30; Start 05/16/17 at 21:00; Stop 05/18/17 at 09:00 Fluvoxamine Maleate (Luvox) 50 mg HS PO ; Start 05/18/17 at 21:00 Active Scripts Active Reported EXELON 9.5mg/24hr (Rivastigmine) 1 Each Patch.td24 13.3 Patch TD DAILY Depakote (Divalproex Sodium) 500 Mg Tablet.dr 500 Mg PO BID Escitalopram Oxalate 10 Mg Tablet 10 Mg PO DAILY Seroquel (Quetiapine Fumarate) 100 Mg Tablet 100 Mg PO HS Seroquel (Quetiapine Fumarate) 50 Mg Tablet 50 Mg PO DAILY Namenda (Memantine Hcl) 10 Mg Tablet 10 Mg PO BID I have reviewed the current psychotropics carefully including drug interactions. Risk benefit ratio favors no change other than as noted in my dictated progress note. 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
--- NOTE | 2017-05-17 02:08 | PN ---
DATE: 05/15/2017 This is a late entry for 05/15/2017 and covers the elements not covered in my initial note of 05/15/2017. SUBJECTIVE: I met with the patient in the evening of 05/15/2017. The patient continues to minimize most of the problems prompting referral. He state his is to blame for his anger. History from the is quite informative about his anger, impulsivity going back to his teenage years if not before. It has only got worse over time. REVIEW OF SYSTEMS: No CV, , pulmonary, eye, ENT system symptoms on review. Reliability varies. MENTAL STATUS EXAM: Oriented to himself and situation. Speech coherent, abstraction fair, computation impaired, language function intact. Mood and affect at times somewhat grandiose, but pleasant as I met with him. LABORATORY DATA: Reviewed. Valproic acid level is 38 and Depakote was increased to 750 b.i.d. from 500 b.i.d. to help reach a therapeutic level. IMPRESSION: Bipolar 1 disorder, mixed with psychotic features; major neurocognitive disorder, early traumatic with delusion, depression, behavioral disturbance. Rest unchanged. PLAN: Continue psychotropics mentioned in my initial note. We will meet with the patient's on 05/16/2017 and discuss other options for psychotropics. He does seem somewhat anxious, obsessive, and we will explore this further at the treatment team meeting, 05/16/2017. MAN Ajay ERVIN MD DR: BRANDY/abdoulaye JOB#: [id number] / [id number]
[2017-05-17 06:07] VITALS: BP 126/71
[2017-05-17 07:40] LABS: BASO # 0.1 x10^3/uL (0.0-0.2); BASO % 1 % (0-3); EOS # 0.3 x10^3/uL (0.0-0.7); EOS % 6 % (0-3); HEMATOCRIT 39.9 % (39.0-53.0); HEMOGLOBIN 13.6 g/dL (13.0-17.5); LYMPH # 1.7 x10^3/uL (1.0-4.8); LYMPH % 30 % (24-48); MEAN CORPUSCULAR HEMOGLOBIN 29 pg (25-35); MEAN CORPUSCULAR HGB CONC 34 g/dL (31-37); MEAN CORPUSCULAR VOLUME 84 fL (79-100); MONO # 0.5 x10^3/uL (0.0-1.1); MONO % 9 % (0-9); NEUT # 2.9 x10^3uL (1.8-7.7); NEUT % 54 % (31-73); PLATELET COUNT 216 x10^3/uL (140-400); RED BLOOD COUNT 4.74 x10^6/uL (4.30-5.70); RED CELL DISTRIBUTION WIDTH 13.8 % (11.5-14.5); WHITE BLOOD COUNT 5.5 x10^3/uL (4.0-11.0)
[2017-05-17 07:51] LABS: ALBUMIN 2.8 g/dL (3.4-5.0); ALBUMIN/GLOBULIN RATIO 0.8 (1.0-1.7); ALK PHOS 85 U/L (46-116); ALT (SGPT) 10 U/L (16-63); ANION GAP 6 (6-14); AST (SGOT) 7 U/L (15-37); BLOOD UREA NITROGEN 19 mg/dL (8-26); BUN/CREATININE RATIO 17 (6-20); CALCIUM 8.4 mg/dL (8.5-10.1); CARBON DIOXIDE 30 mmol/L (21-32); CHLORIDE 106 mmol/L (98-107); CREATININE 1.1 mg/dL (0.7-1.3); GFR 66.8; GLUCOSE 83 mg/dL (70-99); POTASSIUM 4.5 mmol/L (3.5-5.1); SODIUM 142 mmol/L (136-145); TOTAL BILIRUBIN 0.4 mg/dL (0.2-1.0); TOTAL PROTEIN 6.5 g/dL (6.4-8.2)
[2017-05-17 07:53] LABS: VAL ACID 67 mcg/mL (50-100)
[2017-05-17] MEDS: QUEtiapine 50 MG TABLET. PO SCH (08:23)
[2017-05-17] MEDS: DIVALPROEX 125 MG CAP.SPRINK PO SCH ×2 (08:23→20:25)
[2017-05-17] MEDS: busPIRone 5 MG TABLET. PO SCH ×2 (08:23→14:07)
[2017-05-17] MEDS: CHOLECALCIFEROL (VITAMIN D3) 1,000 UNIT TABLET PO SCH (08:23)
[2017-05-17] MEDS: MEMANTINE 10 MG TABLET. PO SCH ×2 (08:23→20:26)
[2017-05-17] MEDS: RIVASTIGMINE 13.3MG PATCH. TD SCH (08:24)
[2017-05-17 16:16] VITALS: BP 122/76
--- NOTE | 2017-05-17 20:08 | PDOC ---
Exam Note: Zeb Note: Please also refer to the separate dictated note~for this date of service dictated separately.~Patient seen individually. Discussed the patient with Nursing staff reviewed the chart.~Reviewed interim history and current functioning. Reviewed vital signs,~Labs/ Radiology~and current medications noted below. Continue current treatment with the changes noted in the dictated addendum note Assessment: Vital Signs: Vital Signs Date Time Temp Pulse Resp B/P (MAP) Pulse Ox O2 Delivery O2 Flow Rate FiO2 05/17/17 16:16 97.7 65 19 122/76 (91) 96 05/17/17 06:07 Room Air I&O Intake and Output 05/17/17 07:00 Intake Total 1440 ml Balance 1440 ml Intake Oral 1440 ml Labs: Laboratory Tests Test 05/17/17 07:23 White Blood Count 5.5 x10^3/uL (4.0-11.0) Red Blood Count 4.74 x10^6/uL (4.30-5.70) Hemoglobin 13.6 g/dL (13.0-17.5) Hematocrit 39.9 % (39.0-53.0) Mean Corpuscular Volume 84 fL (79-100) Mean Corpuscular Hemoglobin 29 pg (25-35) Mean Corpuscular Hemoglobin Concent 34 g/dL (31-37) Red Cell Distribution Width 13.8 % (11.5-14.5) Platelet Count 216 x10^3/uL (140-400) Neutrophils (%) (Auto) 54 % (31-73) Lymphocytes (%) (Auto) 30 % (24-48) Monocytes (%) (Auto) 9 % (0-9) Eosinophils (%) (Auto) 6 % (0-3) H Basophils (%) (Auto) 1 % (0-3) Neutrophils # (Auto) 2.9 x10^3uL (1.8-7.7) Lymphocytes # (Auto) 1.7 x10^3/uL (1.0-4.8) Monocytes # (Auto) 0.5 x10^3/uL (0.0-1.1) Eosinophils # (Auto) 0.3 x10^3/uL (0.0-0.7) Basophils # (Auto) 0.1 x10^3/uL (0.0-0.2) Sodium Level 142 mmol/L (136-145) Potassium Level 4.5 mmol/L (3.5-5.1) Chloride Level 106 mmol/L (98-107) Carbon Dioxide Level 30 mmol/L (21-32) Anion Gap 6 (6-14) Blood Urea Nitrogen 19 mg/dL (8-26) Creatinine 1.1 mg/dL (0.7-1.3) Estimated GFR (Cockcroft-Gault) 66.8 BUN/Creatinine Ratio 17 (6-20) Glucose Level 83 mg/dL (70-99) Calcium Level 8.4 mg/dL (8.5-10.1) L Magnesium Level 2.0 mg/dL (1.8-2.4) Total Bilirubin 0.4 mg/dL (0.2-1.0) Aspartate Amino Transferase (AST) 7 U/L (15-37) L Alanine Aminotransferase (ALT) 10 U/L (16-63) L Alkaline Phosphatase 85 U/L (46-116) Total Protein 6.5 g/dL (6.4-8.2) Albumin 2.8 g/dL (3.4-5.0) L Albumin/Globulin Ratio 0.8 (1.0-1.7) L Valproic Acid Level 67 mcg/mL (50-100) Valproic Acid Last Dose Date 05/16/17 Valproic Acid Last Dose Time 2100 Current Medications: Meds: Current Medications Olanzapine (ZyPREXA ZYDIS) 2.5 mg PRN Q2HR PRN PO psychosis/ agitation; Start 05/09/17 at 21:30 Acetaminophen (Tylenol) 650 mg PRN Q6HRS PRN PO PAIN / TEMP; Start 05/09/17 at 23:00 Multi-Ingredient Ointment (Analgesic [place]) 1 denise PRN QID PRN TP MUSCLE PAIN; Start 05/09/17 at 23:00 Al Hydroxide/Mg Hydroxide (Mylanta Plus Xs) 15 ml PRN AFTMEALHC PRN PO DYSPEPSIA; Start 05/09/17 at 23:00 Magnesium Hydroxide (Milk Of Magnesia) 2,400 mg PRN QHS PRN PO CONSTIPATION; Start 05/09/17 at 23:00 Memantine (Namenda) 10 mg BID PO Last administered on 05/17/17at 08:23; Start at 21:00 Quetiapine Fumarate (SEROquel) 50 mg DAILY PO Last administered on 05/17/17 08: 23; Start 05/11/17 at 09:00 Quetiapine Fumarate (SEROquel) 100 mg HS PO Last administered on 05/16/17 19:22 ; Start 05/10/17 at 21:00 Rivastigmine (Exelon 13.3mg) 1 patch DAILY TD Last administered on 05/17/17 08: 24; Start 05/11/17 at 09:00 Divalproex Sodium (Depakote Er) 500 mg BID PO ; Start 05/10/17 at 21:00; Stop 05/10/17 at 21:00; Status DC Citalopram Hydrobromide (CeleXA) 20 mg DAILY PO Last administered on 05/16/17 08:31; Start 05/11/17 at 09:00; Stop 05/16/17 at 12:45; Status DC Divalproex Sodium (Depakote Sprinkles) 500 mg BID PO Last administered on 05/12t 09:40; Start 05/10/17 at 21:00; Stop 05/12/17 at 18:43; Status DC Vitamin D (Vitamin D3) 2,000 unit DAILY PO Last administered on 05/17/17 08:23 ; Start 05/12/17 at 09:00 Buspirone HCl (Buspar) 5 mg BID92 PO Last administered on 05/17/17 14:07; Start 05/12/17 at 09:00 Divalproex Sodium (Depakote Sprinkles) 750 mg BID PO Last administered on 08:23; Start 05/12/17 at 21:00 Fluvoxamine Maleate (Luvox) 25 mg HS PO Last administered on 05/16/17 19:30; Start 05/16/17 at 21:00; Stop 05/18/17 at 09:00 Fluvoxamine Maleate (Luvox) 50 mg HS PO ; Start 05/18/17 at 21:00 Active Scripts Active Reported EXELON 9.5mg/24hr (Rivastigmine) 1 Each Patch.td24 13.3 Patch TD DAILY Depakote (Divalproex Sodium) 500 Mg Tablet.dr 500 Mg PO BID Escitalopram Oxalate 10 Mg Tablet 10 Mg PO DAILY Seroquel (Quetiapine Fumarate) 100 Mg Tablet 100 Mg PO HS Seroquel (Quetiapine Fumarate) 50 Mg Tablet 50 Mg PO DAILY Namenda (Memantine Hcl) 10 Mg Tablet 10 Mg PO BID I have reviewed the current psychotropics carefully including drug interactions. Risk benefit ratio favors no change other than as noted in my dictated progress note. 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
[2017-05-17] MEDS: QUEtiapine 100 MG TABLET. PO SCH (20:26)
[2017-05-18 05:47] VITALS: BP 132/68
[2017-05-18] MEDS: DIVALPROEX 125 MG CAP.SPRINK PO SCH ×2 (08:29→21:51)
[2017-05-18] MEDS: MEMANTINE 10 MG TABLET. PO SCH ×2 (08:29→21:51)
[2017-05-18] MEDS: CHOLECALCIFEROL (VITAMIN D3) 1,000 UNIT TABLET PO SCH (08:29)
[2017-05-18] MEDS: busPIRone 5 MG TABLET. PO SCH ×2 (08:29→13:27)
[2017-05-18] MEDS: QUEtiapine 50 MG TABLET. PO SCH (08:30)
[2017-05-18] MEDS: RIVASTIGMINE 13.3MG PATCH. TD SCH (08:30)
[2017-05-18 15:53] VITALS: BP 118/71
--- NOTE | 2017-05-18 20:19 | PDOC ---
Exam Note: Zeb Note: Please also refer to the separate dictated note~for this date of service dictated separately.~Patient seen individually. Discussed the patient with Nursing staff reviewed the chart.~Reviewed interim history and current functioning. Reviewed vital signs,~Labs/ Radiology~and current medications noted below. Continue current treatment with the changes noted in the dictated addendum note Assessment: Vital Signs: Vital Signs Date Time Temp Pulse Resp B/P (MAP) Pulse Ox O2 Delivery O2 Flow Rate FiO2 05/18/17 15:53 98.2 68 20 118/71 (87) 98 05/17/17 06:07 Room Air I&O Intake and Output 05/18/17 07:00 Intake Total 1440 ml Balance 1440 ml Intake Oral 1440 ml Current Medications: Meds: Current Medications Olanzapine (ZyPREXA ZYDIS) 2.5 mg PRN Q2HR PRN PO psychosis/ agitation; Start 05/09/17 at 21:30 Acetaminophen (Tylenol) 650 mg PRN Q6HRS PRN PO PAIN / TEMP; Start 05/09/17 at 23:00 Multi-Ingredient Ointment (Analgesic [place]) 1 denise PRN QID PRN TP MUSCLE PAIN; Start 05/09/17 at 23:00 Al Hydroxide/Mg Hydroxide (Mylanta Plus Xs) 15 ml PRN AFTMEALHC PRN PO DYSPEPSIA; Start 05/09/17 at 23:00 Magnesium Hydroxide (Milk Of Magnesia) 2,400 mg PRN QHS PRN PO CONSTIPATION; Start 05/09/17 at 23:00 Memantine (Namenda) 10 mg BID PO Last administered on 05/18/17 08:29; Start at 21:00 Quetiapine Fumarate (SEROquel) 50 mg DAILY PO Last administered on 05/18/17 08: 30; Start 05/11/17 at 09:00 Quetiapine Fumarate (SEROquel) 100 mg HS PO Last administered on 05/17/17 20:26 ; Start 05/10/17 at 21:00 Rivastigmine (Exelon 13.3mg) 1 patch DAILY TD Last administered on 05/18/17 08: 30; Start 05/11/17 at 09:00 Divalproex Sodium (Depakote Er) 500 mg BID PO ; Start 05/10/17 at 21:00; Stop 05/10/17 at 21:00; Status DC Citalopram Hydrobromide (CeleXA) 20 mg DAILY PO Last administered on 05/16/17 08:31; Start 05/11/17 at 09:00; Stop 05/16/17 at 12:45; Status DC Divalproex Sodium (Depakote Sprinkles) 500 mg BID PO Last administered on 05/12t 09:40; Start 05/10/17 at 21:00; Stop 05/12/17 at 18:43; Status DC Vitamin D (Vitamin D3) 2,000 unit DAILY PO Last administered on 05/18/17 08:29 ; Start 05/12/17 at 09:00 Buspirone HCl (Buspar) 5 mg BID92 PO Last administered on 05/18/17 13:27; Start 05/12/17 at 09:00 Divalproex Sodium (Depakote Sprinkles) 750 mg BID PO Last administered on 08:29; Start 05/12/17 at 21:00 Fluvoxamine Maleate (Luvox) 25 mg HS PO Last administered on 05/17/17at 20:26; Start 05/16/17 at 21:00; Stop 05/18/17 at 09:00; Status DC Fluvoxamine Maleate (Luvox) 50 mg HS PO ; Start 05/18/17 at 21:00; Stop 05/20/17 at 21:01 Fluvoxamine Maleate (Luvox) 75 mg QHS PO ; Start 05/18/17 at 21:00 Active Scripts Active Reported EXELON 9.5mg/24hr (Rivastigmine) 1 Each Patch.td24 13.3 Patch TD DAILY Depakote (Divalproex Sodium) 500 Mg Tablet.dr 500 Mg PO BID Escitalopram Oxalate 10 Mg Tablet 10 Mg PO DAILY Seroquel (Quetiapine Fumarate) 100 Mg Tablet 100 Mg PO HS Seroquel (Quetiapine Fumarate) 50 Mg Tablet 50 Mg PO DAILY Namenda (Memantine Hcl) 10 Mg Tablet 10 Mg PO BID I have reviewed the current psychotropics carefully including drug interactions. Risk benefit ratio favors no change other than as noted in my dictated progress note. 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
[2017-05-18] MEDS: QUEtiapine 100 MG TABLET. PO SCH (21:51)
[2017-05-19 05:46] VITALS: BP 128/51
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
--- NOTE | 2017-05-19 08:07 | PN ---
DATE: 05/17/2017 PSYCHIATRIC PROGRESS NOTE This is a late entry 05/17/2017, covers elements not covered in my initial note 05/17/2017. Met with the patient in the evening of 05/17/2017. The patient slept 7-3/4 hours previous evening, visited and the visit went well. REVIEW OF SYSTEMS: No CV, , pulmonary, eye, ENT system symptoms on review. MENTAL STATUS EXAM: Oriented to himself and situation. Speech coherent, a little pressured at times. Abstraction fair, computation impaired, language function intact. Mood and affect, lability is improved. LABORATORY DATA: Reviewed. IMPRESSION: Chronic traumatic encephalopathy, bipolar 1 disorder, mixed episode. PLAN: I have reviewed extensive records from Dr. Heber Wilson outpatient psychiatrist. Diagnosis consistent with what we have and past psychotropics reviewed at length. Continue current psychotropics, Exelon patch, Namenda, Seroquel, Luvox and BuSpar, Depakote. Valproic acid level on 05/17/2017 is 67, therapeutic. MAN Ajay ERVIN MD DR: BRANDY/abdoulaye JOB#: [id number] / [id number]
[2017-05-19] MEDS: DIVALPROEX 125 MG CAP.SPRINK PO SCH ×2 (08:44→20:08)
[2017-05-19] MEDS: busPIRone 5 MG TABLET. PO SCH ×2 (08:44→13:22)
[2017-05-19] MEDS: MEMANTINE 10 MG TABLET. PO SCH ×2 (08:44→20:08)
[2017-05-19] MEDS: QUEtiapine 50 MG TABLET. PO SCH (08:44)
[2017-05-19] MEDS: RIVASTIGMINE 13.3MG PATCH. TD SCH (08:45)
[2017-05-19] MEDS: CHOLECALCIFEROL (VITAMIN D3) 1,000 UNIT TABLET PO SCH (08:45)
[2017-05-19 15:52] VITALS: BP 151/68
[2017-05-19] MEDS: QUEtiapine 100 MG TABLET. PO SCH (20:08)
--- NOTE | 2017-05-19 22:19 | PDOC ---
Exam Note: Zeb Note: Please also refer to the separate dictated note~for this date of service dictated separately.~Patient seen individually. Discussed the patient with Nursing staff reviewed the chart.~Reviewed interim history and current functioning. Reviewed vital signs,~Labs/ Radiology~and current medications noted below. Continue current treatment with the changes noted in the dictated addendum note Assessment: Vital Signs: Vital Signs Date Time Temp Pulse Resp B/P (MAP) Pulse Ox O2 Delivery O2 Flow Rate FiO2 05/19/17 15:52 98.1 78 18 151/68 (95) 99 Room Air I&O Intake and Output 05/19/17 06:59 Intake Total 2300 ml Balance 2300 ml Intake Oral 2300 ml # Bowel Movements 1 Current Medications: Meds: Current Medications Olanzapine (ZyPREXA ZYDIS) 2.5 mg PRN Q2HR PRN PO psychosis/ agitation; Start 05/09/17 at 21:30 Acetaminophen (Tylenol) 650 mg PRN Q6HRS PRN PO PAIN / TEMP; Start 05/09/17 at 23:00 Multi-Ingredient Ointment (Analgesic [place]) 1 denise PRN QID PRN TP MUSCLE PAIN; Start 05/09/17 at 23:00 Al Hydroxide/Mg Hydroxide (Mylanta Plus Xs) 15 ml PRN AFTMEALHC PRN PO DYSPEPSIA; Start 05/09/17 at 23:00 Magnesium Hydroxide (Milk Of Magnesia) 2,400 mg PRN QHS PRN PO CONSTIPATION; Start 05/09/17 at 23:00 Memantine (Namenda) 10 mg BID PO Last administered on 05/19/17at 20:08; Start at 21:00 Quetiapine Fumarate (SEROquel) 50 mg DAILY PO Last administered on 05/19/17 08: 44; Start 05/11/17 at 09:00 Quetiapine Fumarate (SEROquel) 100 mg HS PO Last administered on 05/19/17 20:08 ; Start 05/10/17 at 21:00 Rivastigmine (Exelon 13.3mg) 1 patch DAILY TD Last administered on 05/19/17 08: 45; Start 05/11/17 at 09:00 Divalproex Sodium (Depakote Er) 500 mg BID PO ; Start 05/10/17 at 21:00; Stop 05/10/17 at 21:00; Status DC Citalopram Hydrobromide (CeleXA) 20 mg DAILY PO Last administered on 05/16/17 08:31; Start 05/11/17 at 09:00; Stop 05/16/17 at 12:45; Status DC Divalproex Sodium (Depakote Sprinkles) 500 mg BID PO Last administered on 05/12t 09:40; Start 05/10/17 at 21:00; Stop 05/12/17 at 18:43; Status DC Vitamin D (Vitamin D3) 2,000 unit DAILY PO Last administered on 05/19/17 08:45 ; Start 05/12/17 at 09:00 Buspirone HCl (Buspar) 5 mg BID92 PO Last administered on 05/19/17 13:22; Start 05/12/17 at 09:00 Divalproex Sodium (Depakote Sprinkles) 750 mg BID PO Last administered on 20:08; Start 05/12/17 at 21:00 Fluvoxamine Maleate (Luvox) 25 mg HS PO Last administered on 05/17/17at 20:26; Start 05/16/17 at 21:00; Stop 05/18/17 at 09:00; Status DC Fluvoxamine Maleate (Luvox) 50 mg HS PO Last administered on 05/19/17 20:08; Start 05/18/17 at 21:00; Stop 05/20/17 at 21:01 Fluvoxamine Maleate (Luvox) 75 mg QHS PO Last administered on 05/18/17at 21:55; Start 05/18/17 at 21:00; Stop 05/19/17 at 07:41; Status DC Fluvoxamine Maleate (Luvox) 75 mg QHS PO ; Start 05/21/17 at 21:00 Active Scripts Active Reported EXELON 9.5mg/24hr (Rivastigmine) 1 Each Patch.td24 13.3 Patch TD DAILY Depakote (Divalproex Sodium) 500 Mg Tablet.dr 500 Mg PO BID Escitalopram Oxalate 10 Mg Tablet 10 Mg PO DAILY Seroquel (Quetiapine Fumarate) 100 Mg Tablet 100 Mg PO HS Seroquel (Quetiapine Fumarate) 50 Mg Tablet 50 Mg PO DAILY Namenda (Memantine Hcl) 10 Mg Tablet 10 Mg PO BID I have reviewed the current psychotropics carefully including drug interactions. Risk benefit ratio favors no change other than as noted in my dictated progress note. 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
[2017-05-20 06:10] VITALS: BP 102/62
[2017-05-20] MEDS: DIVALPROEX 125 MG CAP.SPRINK PO SCH ×2 (08:39→19:55)
[2017-05-20] MEDS: QUEtiapine 50 MG TABLET. PO SCH (08:39)
[2017-05-20] MEDS: busPIRone 5 MG TABLET. PO SCH ×2 (08:39→13:45)
[2017-05-20] MEDS: MEMANTINE 10 MG TABLET. PO SCH ×2 (08:39→19:56)
[2017-05-20] MEDS: RIVASTIGMINE 13.3MG PATCH. TD SCH (08:40)
[2017-05-20] MEDS: CHOLECALCIFEROL (VITAMIN D3) 1,000 UNIT TABLET PO SCH (08:40)
[2017-05-20 16:31] VITALS: BP 135/72
[2017-05-20] MEDS: QUEtiapine 100 MG TABLET. PO SCH (19:55)
--- NOTE | 2017-05-20 20:22 | PDOC ---
Exam Note: Zeb Note: Please also refer to the separate dictated note~for this date of service dictated separately.~Patient seen individually. Discussed the patient with Nursing staff reviewed the chart.~Reviewed interim history and current functioning. Reviewed vital signs,~Labs/ Radiology~and current medications noted below. Continue current treatment with the changes noted in the dictated addendum note Assessment: Vital Signs: Vital Signs Date Time Temp Pulse Resp B/P (MAP) Pulse Ox O2 Delivery O2 Flow Rate FiO2 05/20/17 16:31 97.8 66 18 135/72 (93) 97 Room Air I&O Intake and Output 05/20/17 07:00 Intake Total 1440 ml Balance 1440 ml Intake Oral 1440 ml Current Medications: Meds: Current Medications Olanzapine (ZyPREXA ZYDIS) 2.5 mg PRN Q2HR PRN PO psychosis/ agitation; Start 05/09/17 at 21:30 Acetaminophen (Tylenol) 650 mg PRN Q6HRS PRN PO PAIN / TEMP; Start 05/09/17 at 23:00 Multi-Ingredient Ointment (Analgesic [place]) 1 denise PRN QID PRN TP MUSCLE PAIN; Start 05/09/17 at 23:00 Al Hydroxide/Mg Hydroxide (Mylanta Plus Xs) 15 ml PRN AFTMEALHC PRN PO DYSPEPSIA; Start 05/09/17 at 23:00 Magnesium Hydroxide (Milk Of Magnesia) 2,400 mg PRN QHS PRN PO CONSTIPATION; Start 05/09/17 at 23:00 Memantine (Namenda) 10 mg BID PO Last administered on 05/20/17 19:56; Start at 21:00 Quetiapine Fumarate (SEROquel) 50 mg DAILY PO Last administered on 05/20/17 08: 39; Start 05/11/17 at 09:00 Quetiapine Fumarate (SEROquel) 100 mg HS PO Last administered on 05/20/17 19:55 ; Start 05/10/17 at 21:00 Rivastigmine (Exelon 13.3mg) 1 patch DAILY TD Last administered on 05/20/17 08: 40; Start 05/11/17 at 09:00 Divalproex Sodium (Depakote Er) 500 mg BID PO ; Start 05/10/17 at 21:00; Stop 05/10/17 at 21:00; Status DC Citalopram Hydrobromide (CeleXA) 20 mg DAILY PO Last administered on 05/16/17 08:31; Start 05/11/17 at 09:00; Stop 05/16/17 at 12:45; Status DC Divalproex Sodium (Depakote Sprinkles) 500 mg BID PO Last administered on 05/12t 09:40; Start 05/10/17 at 21:00; Stop 05/12/17 at 18:43; Status DC Vitamin D (Vitamin D3) 2,000 unit DAILY PO Last administered on 05/20/17 08:40 ; Start 05/12/17 at 09:00 Buspirone HCl (Buspar) 5 mg BID92 PO Last administered on 05/20/17 13:45; Start 05/12/17 at 09:00 Divalproex Sodium (Depakote Sprinkles) 750 mg BID PO Last administered on 19:55; Start 05/12/17 at 21:00 Fluvoxamine Maleate (Luvox) 25 mg HS PO Last administered on 05/17/17at 20:26; Start 05/16/17 at 21:00; Stop 05/18/17 at 09:00; Status DC Fluvoxamine Maleate (Luvox) 50 mg HS PO Last administered on 05/20/17at 19:56; Start 05/18/17 at 21:00; Stop 05/20/17 at 21:01 Fluvoxamine Maleate (Luvox) 75 mg QHS PO Last administered on 05/18/17at 21:55; Start 05/18/17 at 21:00; Stop 05/19/17 at 07:41; Status DC Fluvoxamine Maleate (Luvox) 75 mg QHS PO ; Start 05/21/17 at 21:00 Active Scripts Active Reported EXELON 9.5mg/24hr (Rivastigmine) 1 Each Patch.td24 13.3 Patch TD DAILY Depakote (Divalproex Sodium) 500 Mg Tablet.dr 500 Mg PO BID Escitalopram Oxalate 10 Mg Tablet 10 Mg PO DAILY Seroquel (Quetiapine Fumarate) 100 Mg Tablet 100 Mg PO HS Seroquel (Quetiapine Fumarate) 50 Mg Tablet 50 Mg PO DAILY Namenda (Memantine Hcl) 10 Mg Tablet 10 Mg PO BID I have reviewed the current psychotropics carefully including drug interactions. Risk benefit ratio favors no change other than as noted in my dictated progress note. 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
[2017-05-21 05:55] VITALS: BP 92/82
--- NOTE | 2017-05-21 06:08 | PN ---
DATE: 05/19/2017 This is a late entry for 05/19/2017 and covers the elements not covered in my initial note of 05/19/2017. SUBJECTIVE: I met with the patient in the evening of 05/19/2017 in his room. Overall, per nursing report, the patient has been appropriate on the unit, not aggressive. Family did not visit today. REVIEW OF SYSTEMS: No CV, , pulmonary, eye, ENT system symptoms on review. MENTAL STATUS EXAM: Oriented to himself and situation. Speech coherent, abstraction fair, computation impaired, language function intact. Attention span short. Again, addressed circumstances of conflicts at home, ways to resolve this. No suicidal or homicidal ideation. LABORATORY DATA: Reviewed. 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 PLAN: Gradually increase the Luvox for the obsessive compulsive thought patterns, maintain Exelon patch, Namenda, Seroquel schedule, Depakote and the level is therapeutic along with BuSpar and Zyprexa p.r.n. MALENA ERVIN MD DR: BRANDY/abdoulaye JOB#: [id number] / [id number]
[2017-05-21] MEDS: busPIRone 5 MG TABLET. PO SCH ×2 (07:56→13:19)
[2017-05-21 07:57] VITALS: BP 114/71
[2017-05-21] MEDS: DIVALPROEX 125 MG CAP.SPRINK PO SCH ×2 (07:57→19:58)
[2017-05-21] MEDS: MEMANTINE 10 MG TABLET. PO SCH ×2 (07:57→19:58)
[2017-05-21] MEDS: QUEtiapine 50 MG TABLET. PO SCH (07:57)
[2017-05-21] MEDS: CHOLECALCIFEROL (VITAMIN D3) 1,000 UNIT TABLET PO SCH (07:57)
[2017-05-21] MEDS: RIVASTIGMINE 13.3MG PATCH. TD SCH (07:59)
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
[2017-05-21 15:37] VITALS: BP 106/57
[2017-05-21] MEDS: QUEtiapine 100 MG TABLET. PO SCH (19:58)
--- NOTE | 2017-05-21 20:11 | PDOC ---
Exam Note: Zeb Note: Please also refer to the separate dictated note~for this date of service dictated separately.~Patient seen individually. Discussed the patient with Nursing staff reviewed the chart.~Reviewed interim history and current functioning. Reviewed vital signs,~Labs/ Radiology~and current medications noted below. Continue current treatment with the changes noted in the dictated addendum note Assessment: Vital Signs: Vital Signs Date Time Temp Pulse Resp B/P (MAP) Pulse Ox O2 Delivery O2 Flow Rate FiO2 05/21/17 15:37 98.3 82 16 106/57 (73) 97 05/21/17 05:55 Room Air I&O Intake and Output 05/21/17 07:00 Intake Total 1560 ml Balance 1560 ml Intake Oral 1560 ml Current Medications: Meds: Current Medications Olanzapine (ZyPREXA ZYDIS) 2.5 mg PRN Q2HR PRN PO psychosis/ agitation; Start 05/09/17 at 21:30 Acetaminophen (Tylenol) 650 mg PRN Q6HRS PRN PO PAIN / TEMP; Start 05/09/17 at 23:00 Multi-Ingredient Ointment (Analgesic [place]) 1 denise PRN QID PRN TP MUSCLE PAIN; Start 05/09/17 at 23:00 Al Hydroxide/Mg Hydroxide (Mylanta Plus Xs) 15 ml PRN AFTMEALHC PRN PO DYSPEPSIA; Start 05/09/17 at 23:00 Magnesium Hydroxide (Milk Of Magnesia) 2,400 mg PRN QHS PRN PO CONSTIPATION; Start 05/09/17 at 23:00 Memantine (Namenda) 10 mg BID PO Last administered on 05/21/17 19:58; Start at 21:00 Quetiapine Fumarate (SEROquel) 50 mg DAILY PO Last administered on 05/21/17 07: 57; Start 05/11/17 at 09:00 Quetiapine Fumarate (SEROquel) 100 mg HS PO Last administered on 05/21/17 19:58 ; Start 05/10/17 at 21:00 Rivastigmine (Exelon 13.3mg) 1 patch DAILY TD Last administered on 05/21/17 07: 59; Start 05/11/17 at 09:00 Divalproex Sodium (Depakote Er) 500 mg BID PO ; Start 05/10/17 at 21:00; Stop 05/10/17 at 21:00; Status DC Citalopram Hydrobromide (CeleXA) 20 mg DAILY PO Last administered on 05/16/17 08:31; Start 05/11/17 at 09:00; Stop 05/16/17 at 12:45; Status DC Divalproex Sodium (Depakote Sprinkles) 500 mg BID PO Last administered on 05/12t 09:40; Start 05/10/17 at 21:00; Stop 05/12/17 at 18:43; Status DC Vitamin D (Vitamin D3) 2,000 unit DAILY PO Last administered on 05/21/17 07:57 ; Start 05/12/17 at 09:00 Buspirone HCl (Buspar) 5 mg BID92 PO Last administered on 05/21/17 13:19; Start 05/12/17 at 09:00 Divalproex Sodium (Depakote Sprinkles) 750 mg BID PO Last administered on 19:58; Start 05/12/17 at 21:00 Fluvoxamine Maleate (Luvox) 25 mg HS PO Last administered on 05/17/17 20:26; Start 05/16/17 at 21:00; Stop 05/18/17 at 09:00; Status DC Fluvoxamine Maleate (Luvox) 50 mg HS PO Last administered on 05/20/17at 19:56; Start 05/18/17 at 21:00; Stop 05/20/17 at 21:01; Status DC Fluvoxamine Maleate (Luvox) 75 mg QHS PO Last administered on 05/18/17at 21:55; Start 05/18/17 at 21:00; Stop 05/19/17 at 07:41; Status DC Fluvoxamine Maleate (Luvox) 75 mg QHS PO Last administered on 05/21/17 19:59; Start 05/21/17 at 21:00 Active Scripts Active Reported EXELON 9.5mg/24hr (Rivastigmine) 1 Each Patch.td24 13.3 Patch TD DAILY Depakote (Divalproex Sodium) 500 Mg Tablet.dr 500 Mg PO BID Escitalopram Oxalate 10 Mg Tablet 10 Mg PO DAILY Seroquel (Quetiapine Fumarate) 100 Mg Tablet 100 Mg PO HS Seroquel (Quetiapine Fumarate) 50 Mg Tablet 50 Mg PO DAILY Namenda (Memantine Hcl) 10 Mg Tablet 10 Mg PO BID I have reviewed the current psychotropics carefully including drug interactions. Risk benefit ratio favors no change other than as noted in my dictated progress note. 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
[2017-05-22 06:24] VITALS: BP 105/64
[2017-05-22] MEDS: DIVALPROEX 125 MG CAP.SPRINK PO SCH ×2 (08:25→20:11)
[2017-05-22] MEDS: QUEtiapine 50 MG TABLET. PO SCH (08:25)
[2017-05-22] MEDS: busPIRone 5 MG TABLET. PO SCH ×2 (08:25→13:48)
[2017-05-22] MEDS: CHOLECALCIFEROL (VITAMIN D3) 1,000 UNIT TABLET PO SCH (08:25)
[2017-05-22] MEDS: RIVASTIGMINE 13.3MG PATCH. TD SCH (08:25)
[2017-05-22] MEDS: MEMANTINE 10 MG TABLET. PO SCH ×2 (08:26→20:12)
--- NOTE | 2017-05-22 12:49 | PN ---
DATE: 05/20/2017 PSYCHIATRIC PROGRESS NOTE This late entry of 05/20/2017 covers elements not covered in my initial note for 05/20/2017. SUBJECTIVE: I met with the patient evening of 05/20/2017. The patient has been somewhat withdrawn previous evening, isolated, but had a good day on 05/20/2017. REVIEW OF SYSTEMS: No CV, , pulmonary, eye, ENT system symptoms on review. Reliability poor. MENTAL STATUS EXAM: Oriented to himself and situation. Speech is coherent, abstraction fair, computation impaired, language function intact. Mood and affect is improved. I discussed in detail circumstances prompting admission, he minimizes most of his problems, but admits it "could have been." No suicidal or homicidal ideation. IMPRESSION: Unchanged from initial notes; impulse control disorder, major neurocognitive disorder, traumatic with delusion, depression. PLAN: Continue current psychotropics including Luvox for his obsessive compulsive symptoms. Adjust further as clinically indicated. MALENA ERVIN MD DR: BRANDY/abdoulaye JOB#: [id number] / [id number]
[2017-05-22 16:14] VITALS: BP 103/65
[2017-05-22] MEDS: QUEtiapine 100 MG TABLET. PO SCH (20:12)
--- NOTE | 2017-05-22 20:16 | PDOC ---
Exam Note: Zeb Note: Please also refer to the separate dictated note~for this date of service dictated separately.~Patient seen individually. Discussed the patient with Nursing staff reviewed the chart.~Reviewed interim history and current functioning. Reviewed vital signs,~Labs/ Radiology~and current medications noted below. Continue current treatment with the changes noted in the dictated addendum note Assessment: Vital Signs: Vital Signs Date Time Temp Pulse Resp B/P (MAP) Pulse Ox O2 Delivery O2 Flow Rate FiO2 05/22/17 16:14 97.6 65 18 103/65 (78) 98 05/21/17 05:55 Room Air I&O Intake and Output 05/22/17 07:00 Intake Total 1200 ml Balance 1200 ml Intake Oral 1200 ml Current Medications: Meds: Current Medications Olanzapine (ZyPREXA ZYDIS) 2.5 mg PRN Q2HR PRN PO psychosis/ agitation; Start 05/09/17 at 21:30 Acetaminophen (Tylenol) 650 mg PRN Q6HRS PRN PO PAIN / TEMP; Start 05/09/17 at 23:00 Multi-Ingredient Ointment (Analgesic [place]) 1 denise PRN QID PRN TP MUSCLE PAIN; Start 05/09/17 at 23:00 Al Hydroxide/Mg Hydroxide (Mylanta Plus Xs) 15 ml PRN AFTMEALHC PRN PO DYSPEPSIA; Start 05/09/17 at 23:00 Magnesium Hydroxide (Milk Of Magnesia) 2,400 mg PRN QHS PRN PO CONSTIPATION; Start 05/09/17 at 23:00 Memantine (Namenda) 10 mg BID PO Last administered on 05/22/17 20:12; Start at 21:00 Quetiapine Fumarate (SEROquel) 50 mg DAILY PO Last administered on 05/22/17 08: 25; Start 05/11/17 at 09:00 Quetiapine Fumarate (SEROquel) 100 mg HS PO Last administered on 05/22/17 20:12 ; Start 05/10/17 at 21:00 Rivastigmine (Exelon 13.3mg) 1 patch DAILY TD Last administered on 05/22/17 08: 25; Start 05/11/17 at 09:00 Divalproex Sodium (Depakote Er) 500 mg BID PO ; Start 05/10/17 at 21:00; Stop 05/10/17 at 21:00; Status DC Citalopram Hydrobromide (CeleXA) 20 mg DAILY PO Last administered on 05/16/17 08:31; Start 05/11/17 at 09:00; Stop 05/16/17 at 12:45; Status DC Divalproex Sodium (Depakote Sprinkles) 500 mg BID PO Last administered on 05/12t 09:40; Start 05/10/17 at 21:00; Stop 05/12/17 at 18:43; Status DC Vitamin D (Vitamin D3) 2,000 unit DAILY PO Last administered on 05/22/17 08:25 ; Start 05/12/17 at 09:00 Buspirone HCl (Buspar) 5 mg BID92 PO Last administered on 05/22/17 13:48; Start 05/12/17 at 09:00 Divalproex Sodium (Depakote Sprinkles) 750 mg BID PO Last administered on 20:11; Start 05/12/17 at 21:00 Fluvoxamine Maleate (Luvox) 25 mg HS PO Last administered on 05/17/17 20:26; Start 05/16/17 at 21:00; Stop 05/18/17 at 09:00; Status DC Fluvoxamine Maleate (Luvox) 50 mg HS PO Last administered on 05/20/17at 19:56; Start 05/18/17 at 21:00; Stop 05/20/17 at 21:01; Status DC Fluvoxamine Maleate (Luvox) 75 mg QHS PO Last administered on 05/18/17at 21:55; Start 05/18/17 at 21:00; Stop 05/19/17 at 07:41; Status DC Fluvoxamine Maleate (Luvox) 75 mg QHS PO Last administered on 05/22/17at 20:12; Start 05/21/17 at 21:00 Active Scripts Active Reported EXELON 9.5mg/24hr (Rivastigmine) 1 Each Patch.td24 13.3 Patch TD DAILY Depakote (Divalproex Sodium) 500 Mg Tablet.dr 500 Mg PO BID Escitalopram Oxalate 10 Mg Tablet 10 Mg PO DAILY Seroquel (Quetiapine Fumarate) 100 Mg Tablet 100 Mg PO HS Seroquel (Quetiapine Fumarate) 50 Mg Tablet 50 Mg PO DAILY Namenda (Memantine Hcl) 10 Mg Tablet 10 Mg PO BID I have reviewed the current psychotropics carefully including drug interactions. Risk benefit ratio favors no change other than as noted in my dictated progress note. 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
[2017-05-23 06:27] VITALS: BP_SYST 106; BP_SYST 156; BP_DIAS 61; BP_DIAS 90
[2017-05-23] MEDS: DIVALPROEX 125 MG CAP.SPRINK PO SCH ×2 (08:04→19:25)
[2017-05-23] MEDS: CHOLECALCIFEROL (VITAMIN D3) 1,000 UNIT TABLET PO SCH (08:04)
[2017-05-23] MEDS: RIVASTIGMINE 13.3MG PATCH. TD SCH (08:05)
[2017-05-23] MEDS: busPIRone 5 MG TABLET. PO SCH ×2 (08:05→13:25)
[2017-05-23] MEDS: QUEtiapine 50 MG TABLET. PO SCH (08:05)
[2017-05-23] MEDS: MEMANTINE 10 MG TABLET. PO SCH ×2 (08:05→19:23)
--- NOTE | 2017-05-23 08:42 | PN ---
DATE: 05/21/2017 PSYCHIATRIC PROGRESS NOTE This late entry of 05/21/2017 covers elements not covered in my initial note of 05/21/2017. SUBJECTIVE: I met with the patient evening of 05/21/2017. The patient has been fairly cooperative on the unit, minimizes problems at home, processed this with him individually. REVIEW OF SYSTEMS: No CV, , pulmonary, eye, ENT system symptoms on review. MENTAL STATUS EXAM: Reasonably oriented. Speech coherent, pleasant, verbal. Abstraction fair, computation impaired, language function intact. Short term memory does have some deficits. LABORATORY DATA: Reviewed. 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 PLAN: Continue psychotropics mentioned in my initial note. Luvox will be increased to 75 mg p.o. at bedtime. MAN Ajay ERVIN MD DR: BRANDY/abdoulaye JOB#: [id number] / [id number]
[2017-05-23 16:18] VITALS: BP 119/71
[2017-05-23] MEDS: QUEtiapine 100 MG TABLET. PO SCH (19:23)
--- NOTE | 2017-05-23 19:57 | PDOC ---
Exam Note: Zeb Note: Please also refer to the separate dictated note~for this date of service dictated separately.~Patient seen individually. Discussed the patient with Nursing staff reviewed the chart.~Reviewed interim history and current functioning. Reviewed vital signs,~Labs/ Radiology~and current medications noted below. Continue current treatment with the changes noted in the dictated addendum note Assessment: Vital Signs: Vital Signs Date Time Temp Pulse Resp B/P (MAP) Pulse Ox O2 Delivery O2 Flow Rate FiO2 05/23/17 16:18 97.5 80 18 119/71 (87) 97 05/21/17 05:55 Room Air I&O Intake and Output 05/23/17 07:00 Intake Total 1920 ml Balance 1920 ml Intake Oral 1920 ml # Bowel Movements 1 Current Medications: Meds: Current Medications Olanzapine (ZyPREXA ZYDIS) 2.5 mg PRN Q2HR PRN PO psychosis/ agitation; Start 05/09/17 at 21:30 Acetaminophen (Tylenol) 650 mg PRN Q6HRS PRN PO PAIN / TEMP; Start 05/09/17 at 23:00 Multi-Ingredient Ointment (Analgesic [place]) 1 denise PRN QID PRN TP MUSCLE PAIN; Start 05/09/17 at 23:00 Al Hydroxide/Mg Hydroxide (Mylanta Plus Xs) 15 ml PRN AFTMEALHC PRN PO DYSPEPSIA; Start 05/09/17 at 23:00 Magnesium Hydroxide (Milk Of Magnesia) 2,400 mg PRN QHS PRN PO CONSTIPATION; Start 05/09/17 at 23:00 Memantine (Namenda) 10 mg BID PO Last administered on 05/23/17at 19:23; Start 05/10/17 at 21:00 Quetiapine Fumarate (SEROquel) 50 mg DAILY PO Last administered on 05/23/17 08 :05; Start 05/11/17 at 09:00 Quetiapine Fumarate (SEROquel) 100 mg HS PO Last administered on 05/23/17 19: 23; Start 05/10/17 at 21:00 Rivastigmine (Exelon 13.3mg) 1 patch DAILY TD Last administered on 05/23/17 08 :05; Start 05/11/17 at 09:00 Divalproex Sodium (Depakote Er) 500 mg BID PO ; Start 05/10/17 at 21:00; Stop 05/10/17 at 21:00; Status DC Citalopram Hydrobromide (CeleXA) 20 mg DAILY PO Last administered on 05/16/17 08:31; Start 05/11/17 at 09:00; Stop 05/16/17 at 12:45; Status DC Divalproex Sodium (Depakote Sprinkles) 500 mg BID PO Last administered on 05/12t 09:40; Start 05/10/17 at 21:00; Stop 05/12/17 at 18:43; Status DC Vitamin D (Vitamin D3) 2,000 unit DAILY PO Last administered on 05/23/17 08:04 ; Start 05/12/17 at 09:00 Buspirone HCl (Buspar) 5 mg BID92 PO Last administered on 05/23/17 13:25; Start 05/12/17 at 09:00 Divalproex Sodium (Depakote Sprinkles) 750 mg BID PO Last administered on 19:25; Start 05/12/17 at 21:00 Fluvoxamine Maleate (Luvox) 25 mg HS PO Last administered on 05/17/17 20:26; Start 05/16/17 at 21:00; Stop 05/18/17 at 09:00; Status DC Fluvoxamine Maleate (Luvox) 50 mg HS PO Last administered on 05/20/17at 19:56; Start 05/18/17 at 21:00; Stop 05/20/17 at 21:01; Status DC Fluvoxamine Maleate (Luvox) 75 mg QHS PO Last administered on 05/18/17at 21:55; Start 05/18/17 at 21:00; Stop 05/19/17 at 07:41; Status DC Fluvoxamine Maleate (Luvox) 75 mg QHS PO Last administered on 05/23/17 19:24; Start 05/21/17 at 21:00 Active Scripts Active Reported EXELON 9.5mg/24hr (Rivastigmine) 1 Each Patch.td24 13.3 Patch TD DAILY Depakote (Divalproex Sodium) 500 Mg Tablet.dr 500 Mg PO BID Escitalopram Oxalate 10 Mg Tablet 10 Mg PO DAILY Seroquel (Quetiapine Fumarate) 100 Mg Tablet 100 Mg PO HS Seroquel (Quetiapine Fumarate) 50 Mg Tablet 50 Mg PO DAILY Namenda (Memantine Hcl) 10 Mg Tablet 10 Mg PO BID I have reviewed the current psychotropics carefully including drug interactions. Risk benefit ratio favors no change other than as noted in my dictated progress note. 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
[2017-05-24 06:06] VITALS: BP 108/65
[2017-05-24] MEDS: CHOLECALCIFEROL (VITAMIN D3) 1,000 UNIT TABLET PO SCH (08:40)
[2017-05-24] MEDS: MEMANTINE 10 MG TABLET. PO SCH ×2 (08:40→19:48)
[2017-05-24] MEDS: DIVALPROEX 125 MG CAP.SPRINK PO SCH ×2 (08:40→19:48)
[2017-05-24] MEDS: busPIRone 5 MG TABLET. PO SCH ×2 (08:40→13:13)
[2017-05-24] MEDS: QUEtiapine 50 MG TABLET. PO SCH (08:40)
[2017-05-24] MEDS: RIVASTIGMINE 13.3MG PATCH. TD SCH (08:41)
--- NOTE | 2017-05-24 09:40 | PN ---
DATE: 05/22/2017 This late entry 05/22/2017 covers elements not covered in my initial note 05/22/2017. I met with the patient evening of 05/22/2017. The patient's visited from noon to 1 p.m. and they were arguing, but not aggressive, otherwise on the unit he is doing reasonably well. This note covers elements not covered in my initial note of 05/22/2017. REVIEW OF SYSTEMS: No CV, , pulmonary, eye, ENT system symptoms on review. Reliability fair. MENTAL STATUS EXAM: Oriented to himself and situation. Speech coherent, abstraction fair, computation impaired, language function intact, attention span fair. Mood and affect showing improvement. IMPRESSION: Impulse control disorder, bipolar 1 disorder, mixed symptoms of obsessive compulsive disorder, major neurocognitive disorder, traumatic early with delusion, depression. Rest unchanged. PLAN: Continue psychotropics mentioned in my initial note. Luvox was increased to 75 mg a day, may need to increase further in due course, but given his bipolar diagnosis, I would rather not do that since it could worsen some of the mood lability. MAN Ajay ERVIN MD DR: BRANDY/abdoulaye JOB#: [id number] / [id number]
[2017-05-24 15:54] VITALS: BP 112/73
[2017-05-24] MEDS: QUEtiapine 100 MG TABLET. PO SCH (19:48)
[2017-05-24] MEDS: ATORVASTATIN CALCIUM 20 MG TABLET PO SCH (19:49)
--- NOTE | 2017-05-24 20:06 | PDOC ---
Exam Note: Zeb Note: Please also refer to the separate dictated note~for this date of service dictated separately.~Patient seen individually. Discussed the patient with Nursing staff reviewed the chart.~Reviewed interim history and current functioning. Reviewed vital signs,~Labs/ Radiology~and current medications noted below. Continue current treatment with the changes noted in the dictated addendum note Assessment: Vital Signs: Vital Signs Date Time Temp Pulse Resp B/P (MAP) Pulse Ox O2 Delivery O2 Flow Rate FiO2 05/24/17 15:54 97.5 68 18 112/73 (86) 99 05/21/17 05:55 Room Air I&O Intake and Output 05/24/17 07:00 Intake Total 1740 ml Balance 1740 ml Intake Oral 1740 ml Current Medications: Meds: Current Medications Olanzapine (ZyPREXA ZYDIS) 2.5 mg PRN Q2HR PRN PO psychosis/ agitation; Start 05/09/17 at 21:30 Acetaminophen (Tylenol) 650 mg PRN Q6HRS PRN PO PAIN / TEMP; Start 05/09/17 at 23:00 Multi-Ingredient Ointment (Analgesic [place]) 1 denise PRN QID PRN TP MUSCLE PAIN; Start 05/09/17 at 23:00 Al Hydroxide/Mg Hydroxide (Mylanta Plus Xs) 15 ml PRN AFTMEALHC PRN PO DYSPEPSIA; Start 05/09/17 at 23:00 Magnesium Hydroxide (Milk Of Magnesia) 2,400 mg PRN QHS PRN PO CONSTIPATION; Start 05/09/17 at 23:00 Memantine (Namenda) 10 mg BID PO Last administered on 05/24/17at 19:48; Start 05/10/17 at 21:00 Quetiapine Fumarate (SEROquel) 50 mg DAILY PO Last administered on 05/24/17 08 :40; Start 05/11/17 at 09:00 Quetiapine Fumarate (SEROquel) 100 mg HS PO Last administered on 05/24/17 19: 48; Start 05/10/17 at 21:00 Rivastigmine (Exelon 13.3mg) 1 patch DAILY TD Last administered on 05/24/17 08 :41; Start 05/11/17 at 09:00 Divalproex Sodium (Depakote Er) 500 mg BID PO ; Start 05/10/17 at 21:00; Stop 05/10/17 at 21:00; Status DC Citalopram Hydrobromide (CeleXA) 20 mg DAILY PO Last administered on 05/16/17 08:31; Start 05/11/17 at 09:00; Stop 05/16/17 at 12:45; Status DC Divalproex Sodium (Depakote Sprinkles) 500 mg BID PO Last administered on 05/12t 09:40; Start 05/10/17 at 21:00; Stop 05/12/17 at 18:43; Status DC Vitamin D (Vitamin D3) 2,000 unit DAILY PO Last administered on 05/24/17 08:40 ; Start 05/12/17 at 09:00 Buspirone HCl (Buspar) 5 mg BID92 PO Last administered on 05/24/17 13:13; Start 05/12/17 at 09:00 Divalproex Sodium (Depakote Sprinkles) 750 mg BID PO Last administered on 19:48; Start 05/12/17 at 21:00 Fluvoxamine Maleate (Luvox) 25 mg HS PO Last administered on 05/17/17 20:26; Start 05/16/17 at 21:00; Stop 05/18/17 at 09:00; Status DC Fluvoxamine Maleate (Luvox) 50 mg HS PO Last administered on 05/20/17 19:56; Start 05/18/17 at 21:00; Stop 05/20/17 at 21:01; Status DC Fluvoxamine Maleate (Luvox) 75 mg QHS PO Last administered on 05/18/17 21:55; Start 05/18/17 at 21:00; Stop 05/19/17 at 07:41; Status DC Fluvoxamine Maleate (Luvox) 75 mg QHS PO Last administered on 05/24/17 19:48; Start 05/21/17 at 21:00 Atorvastatin Calcium (Lipitor) 20 mg QHS PO Last administered on 05/24/17 19: 49; Start 05/24/17 at 21:00 Active Scripts Active Reported EXELON 9.5mg/24hr (Rivastigmine) 1 Each Patch.td24 13.3 Patch TD DAILY Depakote (Divalproex Sodium) 500 Mg Tablet.dr 500 Mg PO BID Escitalopram Oxalate 10 Mg Tablet 10 Mg PO DAILY Seroquel (Quetiapine Fumarate) 100 Mg Tablet 100 Mg PO HS Seroquel (Quetiapine Fumarate) 50 Mg Tablet 50 Mg PO DAILY Namenda (Memantine Hcl) 10 Mg Tablet 10 Mg PO BID I have reviewed the current psychotropics carefully including drug interactions. Risk benefit ratio favors no change other than as noted in my dictated progress note. 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
[2017-05-25 06:35] VITALS: BP 118/64
[2017-05-25] MEDS: MEMANTINE 10 MG TABLET. PO SCH ×2 (08:41→19:54)
[2017-05-25] MEDS: QUEtiapine 50 MG TABLET. PO SCH (08:41)
[2017-05-25] MEDS: busPIRone 5 MG TABLET. PO SCH ×2 (08:41→13:28)
[2017-05-25] MEDS: RIVASTIGMINE 13.3MG PATCH. TD SCH (08:41)
[2017-05-25] MEDS: CHOLECALCIFEROL (VITAMIN D3) 1,000 UNIT TABLET PO SCH (08:41)
[2017-05-25] MEDS: DIVALPROEX 125 MG CAP.SPRINK PO SCH ×2 (08:41→19:53)
[2017-05-25 16:03] VITALS: BP 118/63
[2017-05-25] MEDS: ATORVASTATIN CALCIUM 20 MG TABLET PO SCH (19:54)
[2017-05-25] MEDS: QUEtiapine 100 MG TABLET. PO SCH (19:54)
--- NOTE | 2017-05-25 20:11 | PDOC ---
Exam Note: Zeb Note: Please also refer to the separate dictated note~for this date of service dictated separately.~Patient seen individually. Discussed the patient with Nursing staff reviewed the chart.~Reviewed interim history and current functioning. Reviewed vital signs,~Labs/ Radiology~and current medications noted below. Continue current treatment with the changes noted in the dictated addendum note Assessment: Vital Signs: Vital Signs Date Time Temp Pulse Resp B/P (MAP) Pulse Ox O2 Delivery O2 Flow Rate FiO2 05/25/17 16:03 98.5 65 21 118/63 (81) 98 05/21/17 05:55 Room Air I&O Intake and Output 05/25/17 07:00 Intake Total 1800 ml Balance 1800 ml Intake Oral 1800 ml # Bowel Movements 1 Current Medications: Meds: Current Medications Olanzapine (ZyPREXA ZYDIS) 2.5 mg PRN Q2HR PRN PO psychosis/ agitation; Start 05/09/17 at 21:30 Acetaminophen (Tylenol) 650 mg PRN Q6HRS PRN PO PAIN / TEMP; Start 05/09/17 at 23:00 Multi-Ingredient Ointment (Analgesic [place]) 1 denise PRN QID PRN TP MUSCLE PAIN; Start 05/09/17 at 23:00 Al Hydroxide/Mg Hydroxide (Mylanta Plus Xs) 15 ml PRN AFTMEALHC PRN PO DYSPEPSIA; Start 05/09/17 at 23:00 Magnesium Hydroxide (Milk Of Magnesia) 2,400 mg PRN QHS PRN PO CONSTIPATION; Start 05/09/17 at 23:00 Memantine (Namenda) 10 mg BID PO Last administered on 05/25/17 19:54; Start 05/10/17 at 21:00 Quetiapine Fumarate (SEROquel) 50 mg DAILY PO Last administered on 05/25/17 08 :41; Start 05/11/17 at 09:00 Quetiapine Fumarate (SEROquel) 100 mg HS PO Last administered on 05/25/17 19: 54; Start 05/10/17 at 21:00 Rivastigmine (Exelon 13.3mg) 1 patch DAILY TD Last administered on 05/25/17 08 :41; Start 05/11/17 at 09:00 Divalproex Sodium (Depakote Er) 500 mg BID PO ; Start 05/10/17 at 21:00; Stop 05/10/17 at 21:00; Status DC Citalopram Hydrobromide (CeleXA) 20 mg DAILY PO Last administered on 05/16/17 08:31; Start 05/11/17 at 09:00; Stop 05/16/17 at 12:45; Status DC Divalproex Sodium (Depakote Sprinkles) 500 mg BID PO Last administered on 05/12t 09:40; Start 05/10/17 at 21:00; Stop 05/12/17 at 18:43; Status DC Vitamin D (Vitamin D3) 2,000 unit DAILY PO Last administered on 05/25/17 08:41 ; Start 05/12/17 at 09:00 Buspirone HCl (Buspar) 5 mg BID92 PO Last administered on 05/25/17 13:28; Start 05/12/17 at 09:00 Divalproex Sodium (Depakote Sprinkles) 750 mg BID PO Last administered on 19:53; Start 05/12/17 at 21:00 Fluvoxamine Maleate (Luvox) 25 mg HS PO Last administered on 05/17/17 20:26; Start 05/16/17 at 21:00; Stop 05/18/17 at 09:00; Status DC Fluvoxamine Maleate (Luvox) 50 mg HS PO Last administered on 05/20/17 19:56; Start 05/18/17 at 21:00; Stop 05/20/17 at 21:01; Status DC Fluvoxamine Maleate (Luvox) 75 mg QHS PO Last administered on 05/18/17 21:55; Start 05/18/17 at 21:00; Stop 05/19/17 at 07:41; Status DC Fluvoxamine Maleate (Luvox) 75 mg QHS PO Last administered on 05/25/17 19:53; Start 05/21/17 at 21:00 Atorvastatin Calcium (Lipitor) 20 mg QHS PO Last administered on 05/25/17 19: 54; Start 05/24/17 at 21:00 Active Scripts Active Reported EXELON 9.5mg/24hr (Rivastigmine) 1 Each Patch.td24 13.3 Patch TD DAILY Depakote (Divalproex Sodium) 500 Mg Tablet.dr 500 Mg PO BID Escitalopram Oxalate 10 Mg Tablet 10 Mg PO DAILY Seroquel (Quetiapine Fumarate) 100 Mg Tablet 100 Mg PO HS Seroquel (Quetiapine Fumarate) 50 Mg Tablet 50 Mg PO DAILY Namenda (Memantine Hcl) 10 Mg Tablet 10 Mg PO BID I have reviewed the current psychotropics carefully including drug interactions. Risk benefit ratio favors no change other than as noted in my dictated progress note. 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
[2017-05-26 06:13] VITALS: BP 96/56
[2017-05-26] MEDS: QUEtiapine 50 MG TABLET. PO SCH (07:48)
[2017-05-26] MEDS: busPIRone 5 MG TABLET. PO SCH ×2 (07:48→12:58)
[2017-05-26] MEDS: CHOLECALCIFEROL (VITAMIN D3) 1,000 UNIT TABLET PO SCH (07:48)
[2017-05-26] MEDS: DIVALPROEX 125 MG CAP.SPRINK PO SCH ×2 (07:48→19:24)
[2017-05-26] MEDS: MEMANTINE 10 MG TABLET. PO SCH ×2 (07:48→19:24)
[2017-05-26] MEDS: RIVASTIGMINE 13.3MG PATCH. TD SCH (07:48)
[2017-05-26 11:13] LABS: BASO # 0.1 x10^3/uL (0.0-0.2); BASO % 1 % (0-3); EOS # 0.2 x10^3/uL (0.0-0.7); EOS % 3 % (0-3); HEMATOCRIT 43.8 % (39.0-53.0); HEMOGLOBIN 14.7 g/dL (13.0-17.5); LYMPH # 2.3 x10^3/uL (1.0-4.8); LYMPH % 32 % (24-48); MEAN CORPUSCULAR HEMOGLOBIN 28 pg (25-35); MEAN CORPUSCULAR HGB CONC 34 g/dL (31-37); MEAN CORPUSCULAR VOLUME 85 fL (79-100); MONO # 0.4 x10^3/uL (0.0-1.1); MONO % 6 % (0-9); NEUT # 4.1 x10^3uL (1.8-7.7); NEUT % 58 % (31-73); PLATELET COUNT 231 x10^3/uL (140-400); RED BLOOD COUNT 5.17 x10^6/uL (4.30-5.70); RED CELL DISTRIBUTION WIDTH 14.2 % (11.5-14.5); WHITE BLOOD COUNT 7.2 x10^3/uL (4.0-11.0)
[2017-05-26 11:20] LABS: ALBUMIN 3.1 g/dL (3.4-5.0); ALBUMIN/GLOBULIN RATIO 0.8 (1.0-1.7); CALCIUM 8.9 mg/dL (8.5-10.1); CREATININE 1.3 mg/dL (0.7-1.3); GFR 55.1; POTASSIUM 4.7 mmol/L (3.5-5.1); TOTAL BILIRUBIN 0.3 mg/dL (0.2-1.0); TOTAL PROTEIN 7.2 g/dL (6.4-8.2)
[2017-05-26] MEDS ORDERED: diazePAM 2 MG TABLET PO SCH (14:00)
[2017-05-26 15:50] VITALS: BP 120/73
[2017-05-26] MEDS: ATORVASTATIN CALCIUM 20 MG TABLET PO SCH (19:24)
[2017-05-26] MEDS: QUEtiapine 100 MG TABLET. PO SCH (19:24)
--- NOTE | 2017-05-26 20:09 | PDOC ---
Exam Note: Zeb Note: Please also refer to the separate dictated note~for this date of service dictated separately.~Patient seen individually. Discussed the patient with Nursing staff reviewed the chart.~Reviewed interim history and current functioning. Reviewed vital signs,~Labs/ Radiology~and current medications noted below. Continue current treatment with the changes noted in the dictated addendum note Assessment: Vital Signs: Vital Signs Date Time Temp Pulse Resp B/P (MAP) Pulse Ox O2 Delivery O2 Flow Rate FiO2 05/26/17 15:50 97.7 74 16 120/73 (89) 97 05/21/17 05:55 Room Air I&O Intake and Output 05/26/17 07:00 Intake Total 960 ml Balance 960 ml Intake Oral 960 ml Labs: Laboratory Tests Test 05/26/17 10:55 White Blood Count 7.2 x10^3/uL (4.0-11.0) Red Blood Count 5.17 x10^6/uL (4.30-5.70) Hemoglobin 14.7 g/dL (13.0-17.5) Hematocrit 43.8 % (39.0-53.0) Mean Corpuscular Volume 85 fL (79-100) Mean Corpuscular Hemoglobin 28 pg (25-35) Mean Corpuscular Hemoglobin Concent 34 g/dL (31-37) Red Cell Distribution Width 14.2 % (11.5-14.5) Platelet Count 231 x10^3/uL (140-400) Neutrophils (%) (Auto) 58 % (31-73) Lymphocytes (%) (Auto) 32 % (24-48) Monocytes (%) (Auto) 6 % (0-9) Eosinophils (%) (Auto) 3 % (0-3) Basophils (%) (Auto) 1 % (0-3) Neutrophils # (Auto) 4.1 x10^3uL (1.8-7.7) Lymphocytes # (Auto) 2.3 x10^3/uL (1.0-4.8) Monocytes # (Auto) 0.4 x10^3/uL (0.0-1.1) Eosinophils # (Auto) 0.2 x10^3/uL (0.0-0.7) Basophils # (Auto) 0.1 x10^3/uL (0.0-0.2) Sodium Level 143 mmol/L (136-145) Potassium Level 4.7 mmol/L (3.5-5.1) Chloride Level 106 mmol/L (98-107) Carbon Dioxide Level 33 mmol/L (21-32) H Anion Gap 4 (6-14) L Blood Urea Nitrogen 17 mg/dL (8-26) Creatinine 1.3 mg/dL (0.7-1.3) Estimated GFR (Cockcroft-Gault) 55.1 BUN/Creatinine Ratio 13 (6-20) Glucose Level 113 mg/dL (70-99) H Calcium Level 8.9 mg/dL (8.5-10.1) Total Bilirubin 0.3 mg/dL (0.2-1.0) Aspartate Amino Transferase (AST) 10 U/L (15-37) L Alanine Aminotransferase (ALT) 12 U/L (16-63) L Alkaline Phosphatase 106 U/L (46-116) Total Protein 7.2 g/dL (6.4-8.2) Albumin 3.1 g/dL (3.4-5.0) L Albumin/Globulin Ratio 0.8 (1.0-1.7) L Current Medications: Meds: Current Medications Olanzapine (ZyPREXA ZYDIS) 2.5 mg PRN Q2HR PRN PO psychosis/ agitation; Start 05/09/17 at 21:30 Acetaminophen (Tylenol) 650 mg PRN Q6HRS PRN PO PAIN / TEMP; Start 05/09/17 at 23:00 Multi-Ingredient Ointment (Analgesic [place]) 1 denise PRN QID PRN TP MUSCLE PAIN; Start 05/09/17 at 23:00 Al Hydroxide/Mg Hydroxide (Mylanta Plus Xs) 15 ml PRN AFTMEALHC PRN PO DYSPEPSIA; Start 05/09/17 at 23:00 Magnesium Hydroxide (Milk Of Magnesia) 2,400 mg PRN QHS PRN PO CONSTIPATION; Start 05/09/17 at 23:00 Memantine (Namenda) 10 mg BID PO Last administered on 05/26/17at 19:24; Start 05/10/17 at 21:00 Quetiapine Fumarate (SEROquel) 50 mg DAILY PO Last administered on 05/26/17at 07 :48; Start 05/11/17 at 09:00 Quetiapine Fumarate (SEROquel) 100 mg HS PO Last administered on 05/26/17 19: 24; Start 05/10/17 at 21:00 Rivastigmine (Exelon 13.3mg) 1 patch DAILY TD Last administered on 05/26/17 07 :48; Start 05/11/17 at 09:00 Divalproex Sodium (Depakote Er) 500 mg BID PO ; Start 05/10/17 at 21:00; Stop 05/10/17 at 21:00; Status DC Citalopram Hydrobromide (CeleXA) 20 mg DAILY PO Last administered on 05/16/17 08:31; Start 05/11/17 at 09:00; Stop 05/16/17 at 12:45; Status DC Divalproex Sodium (Depakote Sprinkles) 500 mg BID PO Last administered on 05/12t 09:40; Start 05/10/17 at 21:00; Stop 05/12/17 at 18:43; Status DC Vitamin D (Vitamin D3) 2,000 unit DAILY PO Last administered on 05/26/17 07:48 ; Start 05/12/17 at 09:00 Buspirone HCl (Buspar) 5 mg BID92 PO Last administered on 05/26/17 12:58; Start 05/12/17 at 09:00 Divalproex Sodium (Depakote Sprinkles) 750 mg BID PO Last administered on 19:24; Start 05/12/17 at 21:00 Fluvoxamine Maleate (Luvox) 25 mg HS PO Last administered on 05/17/17 20:26; Start 05/16/17 at 21:00; Stop 05/18/17 at 09:00; Status DC Fluvoxamine Maleate (Luvox) 50 mg HS PO Last administered on 05/20/17 19:56; Start 05/18/17 at 21:00; Stop 05/20/17 at 21:01; Status DC Fluvoxamine Maleate (Luvox) 75 mg QHS PO Last administered on 05/18/17 21:55; Start 05/18/17 at 21:00; Stop 05/19/17 at 07:41; Status DC Fluvoxamine Maleate (Luvox) 75 mg QHS PO Last administered on 05/26/17at 19:24; Start 05/21/17 at 21:00 Atorvastatin Calcium (Lipitor) 20 mg QHS PO Last administered on 05/26/17at 19: 24; Start 05/24/17 at 21:00 Diazepam (Valium) 1.5 mg TID PO ; Start 05/26/17 at 14:00; Stop 05/26/17 at 14: 00; Status DC Diazepam (Valium) 1 mg TID PO ; Start 05/31/17 at 09:00; Stop 05/31/17 at 09:00 ; Status DC Diazepam (Valium) 0.5 mg TID PO ; Start 06/05/17 at 09:00; Stop 06/05/17 at 09: 00; Status DC Active Scripts Active Reported EXELON 9.5mg/24hr (Rivastigmine) 1 Each Patch.td24 13.3 Patch TD DAILY Depakote (Divalproex Sodium) 500 Mg Tablet.dr 500 Mg PO BID Escitalopram Oxalate 10 Mg Tablet 10 Mg PO DAILY Seroquel (Quetiapine Fumarate) 100 Mg Tablet 100 Mg PO HS Seroquel (Quetiapine Fumarate) 50 Mg Tablet 50 Mg PO DAILY Namenda (Memantine Hcl) 10 Mg Tablet 10 Mg PO BID I have reviewed the current psychotropics carefully including drug interactions. Risk benefit ratio favors no change other than as noted in my dictated progress note. 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
[2017-05-27] MEDS ORDERED: CHOL10003 PO (02:26)
[2017-05-27] MEDS ORDERED: ATOR20TA58 PO (02:26)
[2017-05-27] MEDS ORDERED: DIVA125C PO (02:27)
[2017-05-27] MEDS ORDERED: OLAN5TAB5 PO (02:29)
[2017-05-27] MEDS ORDERED: BUSP5TAB PO (02:30)
[2017-05-27] MEDS ORDERED: FLUV25TA PO (02:32)
[2017-05-27 05:52] VITALS: BP 133/74
[2017-05-27] MEDS: busPIRone 5 MG TABLET. PO SCH ×2 (07:51→14:00)
[2017-05-27] MEDS: DIVALPROEX 125 MG CAP.SPRINK PO SCH (07:51)
[2017-05-27] MEDS: MEMANTINE 10 MG TABLET. PO SCH (07:52)
[2017-05-27] MEDS: RIVASTIGMINE 13.3MG PATCH. TD SCH (07:52)
[2017-05-27] MEDS: CHOLECALCIFEROL (VITAMIN D3) 1,000 UNIT TABLET PO SCH (07:52)
[2017-05-27] MEDS: QUEtiapine 50 MG TABLET. PO SCH (07:52)
--- NOTE | 2017-05-27 18:40 | PDOC ---
Exam Note: Zeb Note: Please also refer to the separate dictated note~for this date of service dictated separately.~Patient seen individually. Discussed the patient with Nursing staff reviewed the chart.~Reviewed interim history and current functioning. Reviewed vital signs,~Labs/ Radiology~and current medications noted below. Continue current treatment with the changes noted in the dictated addendum note Assessment: Vital Signs: Vital Signs Date Time Temp Pulse Resp B/P (MAP) Pulse Ox O2 Delivery O2 Flow Rate FiO2 05/27/17 05:52 96.4 70 16 133/74 (93) 98 I&O Intake and Output 05/27/17 07:00 Intake Total 1320 ml Balance 1320 ml Intake Oral 1320 ml Current Medications: Meds: Current Medications Olanzapine (ZyPREXA ZYDIS) 2.5 mg PRN Q2HR PRN PO psychosis/ agitation; Start 05/09/17 at 21:30; Stop 05/27/17 at 15:33; Status DC Acetaminophen (Tylenol) 650 mg PRN Q6HRS PRN PO PAIN / TEMP; Start 05/09/17 at 23:00; Stop 05/27/17 at 15:33; Status DC Multi-Ingredient Ointment (Analgesic [place]) 1 denise PRN QID PRN TP MUSCLE PAIN; Start 05/09/17 at 23:00; Stop 05/27/17 at 15:33; Status DC Al Hydroxide/Mg Hydroxide (Mylanta Plus Xs) 15 ml PRN AFTMEALHC PRN PO DYSPEPSIA; Start 05/09/17 at 23:00; Stop 05/27/17 at 15:33; Status DC Magnesium Hydroxide (Milk Of Magnesia) 2,400 mg PRN QHS PRN PO CONSTIPATION; Start 05/09/17 at 23:00; Stop 05/27/17 at 15:33; Status DC Memantine (Namenda) 10 mg BID PO Last administered on 05/27/17at 07:52; Start 05/10/17 at 21:00; Stop 05/27/17 at 15:33; Status DC Quetiapine Fumarate (SEROquel) 50 mg DAILY PO Last administered on 05/27/17at 07 :52; Start 05/11/17 at 09:00; Stop 05/27/17 at 15:33; Status DC Quetiapine Fumarate (SEROquel) 100 mg HS PO Last administered on 05/26/17at 19: 24; Start 05/10/17 at 21:00; Stop 05/27/17 at 15:33; Status DC Rivastigmine (Exelon 13.3mg) 1 patch DAILY TD Last administered on 05/27/17at 07 :52; Start 05/11/17 at 09:00; Stop 05/27/17 at 15:33; Status DC Divalproex Sodium (Depakote Er) 500 mg BID PO ; Start 05/10/17 at 21:00; Stop 05/10/17 at 21:00; Status DC Citalopram Hydrobromide (CeleXA) 20 mg DAILY PO Last administered on 05/16/17at 08:31; Start 05/11/17 at 09:00; Stop 05/16/17 at 12:45; Status DC Divalproex Sodium (Depakote Sprinkles) 500 mg BID PO Last administered on 05/12t 09:40; Start 05/10/17 at 21:00; Stop 05/12/17 at 18:43; Status DC Vitamin D (Vitamin D3) 2,000 unit DAILY PO Last administered on 05/27/17at 07:52 ; Start 05/12/17 at 09:00; Stop 05/27/17 at 15:33; Status DC Buspirone HCl (Buspar) 5 mg BID92 PO Last administered on 05/27/17at 14:00; Start 05/12/17 at 09:00; Stop 05/27/17 at 15:33; Status DC Divalproex Sodium (Depakote Sprinkles) 750 mg BID PO Last administered on at 07:51; Start 05/12/17 at 21:00; Stop 05/27/17 at 15:33; Status DC Fluvoxamine Maleate (Luvox) 25 mg HS PO Last administered on 05/17/17at 20:26; Start 05/16/17 at 21:00; Stop 05/18/17 at 09:00; Status DC Fluvoxamine Maleate (Luvox) 50 mg HS PO Last administered on 05/20/17at 19:56; Start 05/18/17 at 21:00; Stop 05/20/17 at 21:01; Status DC Fluvoxamine Maleate (Luvox) 75 mg QHS PO Last administered on 05/18/17at 21:55; Start 05/18/17 at 21:00; Stop 05/19/17 at 07:41; Status DC Fluvoxamine Maleate (Luvox) 75 mg QHS PO Last administered on 05/26/17at 19:24; Start 05/21/17 at 21:00; Stop 05/27/17 at 15:33; Status DC Atorvastatin Calcium (Lipitor) 20 mg QHS PO Last administered on 05/26/17at 19: 24; Start 05/24/17 at 21:00; Stop 05/27/17 at 15:33; Status DC Diazepam (Valium) 1.5 mg TID PO ; Start 05/26/17 at 14:00; Stop 05/26/17 at 14: 00; Status DC Diazepam (Valium) 1 mg TID PO ; Start 05/31/17 at 09:00; Stop 05/31/17 at 09:00 ; Status DC Diazepam (Valium) 0.5 mg TID PO ; Start 06/05/17 at 09:00; Stop 06/05/17 at 09: 00; Status DC Active Scripts Active Reported Fluvoxamine Maleate 25 Mg Tablet 75 Mg PO QHS Buspirone Hcl 5 Mg Tablet 5 Mg PO BID92 Zyprexa Zydis (Olanzapine) 5 Mg Tab.rapdis 2.5 Mg PO PRN Q2HR PRN MDD 10mg Depakote Sprinkle (Divalproex Sodium) 125 Mg Cap.sprink 750 Mg PO BID Vitamin D3 (Cholecalciferol (Vitamin D3)) 1,000 Unit Tablet 2,000 Unit PO DAILY Atorvastatin Calcium 20 Mg Tablet 20 Mg PO QHS EXELON 9.5mg/24hr (Rivastigmine) 1 Each Patch.td24 13.3 Patch TD DAILY Seroquel (Quetiapine Fumarate) 100 Mg Tablet 100 Mg PO HS Seroquel (Quetiapine Fumarate) 50 Mg Tablet 50 Mg PO DAILY Namenda (Memantine Hcl) 10 Mg Tablet 10 Mg PO BID I have reviewed the current psychotropics carefully including drug interactions. Risk benefit ratio favors no change other than as noted in my dictated progress note. 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
--- NOTE | 2017-05-28 01:01 | PN ---
DATE: 05/23/2017 This is a late entry, 05/23/2017, covers elements not covered in my initial note, 05/23/2017. Met with the patient evening of 05/23/2017. The patient slept 6-1/4 hours previous evening; otherwise, doing well. Gets irritable when his visits. Otherwise, no aggression. No CV, , pulmonary, eye, ENT system symptoms on review. Reliability poor at times. MENTAL STATUS EXAM: Oriented to himself and situation. Speech has some latency, coherent. Abstraction fair, computation impaired, language function intact. He minimizes circumstances prompting admission, attributes this just to the arguments with his . IMPRESSION: Psychotic disorder, unspecified; impulse control disorder, unspecified; major neurocognitive disorder, early traumatic with depression, delusion. PLAN: Continue psychotropics mentioned in my initial note. Adjust further as clinically indicated. MAN Ajay ERVIN MD DR: BRANDY/abdoulaye JOB#: [id number] / [id number]
--- NOTE | 2017-05-28 01:04 | PN ---
DATE: 05/24/2017 This is a late entry, 05/24/2017, covers elements not covered in my initial note, 05/24/2017. Met with the patient morning of 05/24/2017 and staffed a treatment team meeting with entire team morning of 05/24/2017. Appetite 100%, sleeping average 6 hours, slept 6-3/4 hours previous evening, cooperative, little irritable when his visits. No aggression. No CV, , pulmonary, eye, ENT system symptoms on review. MENTAL STATUS EXAM: Oriented to himself and situation. Speech coherent. Discussed at length circumstances prompting admission and ways to improve communication with his without aggression. Speech coherent, abstraction fair, computation somewhat impaired, language function intact. Mood and affect showing improved lability. LABORATORY DATA: Reviewed. IMPRESSION: Impulse control disorder, unspecified; early major neurocognitive disorder, traumatic with depression, delusions. PLAN: Continue psychotropics mentioned in my initial note including Luvox for his obsessive compulsive symptoms to be increased to 75 mg at bedtime. MAN Ajay ERVIN MD DR: BRANDY/abdoulaye JOB#: [id number] / [id number]
--- NOTE | 2017-05-28 02:10 | PN ---
DATE: 05/26/2017 This note covers elements not covered in my initial note of 05/26/2017. SUBJECTIVE: I met with the patient in his room at great length. Addressed again the circumstances prompting admission, ways to improve impulse control, reduce reactivity. REVIEW OF SYSTEMS: No CV, , pulmonary, eye, ENT system symptoms on review. He is cooperative on the unit. MENTAL STATUS EXAM: Oriented to himself and situation. Speech coherent, abstraction fair, computation impaired, language function intact. Mood and affect showing improvement. No suicidal or homicidal ideation. LABORATORY DATA: Reviewed. IMPRESSION: Obsessive-compulsive disorder; anxiety disorder, unspecified; impulse control disorder, unspecified; major neurocognitive disorder; early traumatic with depression, delusions. PLAN: Continue psychotropics mentioned in my initial note. Luvox was increased to 75 mg at bedtime. MAN Ajay ERVIN MD DR: BRANDY/abdoulaye JOB#: [id number] / [id number]
--- NOTE | 2017-05-28 02:11 | PN ---
DATE: 05/25/2017 This is a late entry 05/25/2017. Covers elements not covered in my initial note 05/25/2017. SUBJECTIVE: I met with the patient evening of 05/25 in his room. Discussed circumstances prompting admission, upcoming discharge, ways to improving impulse control. REVIEW OF SYSTEMS: No CV, , pulmonary, eye, ENT system symptoms on review. MENTAL STATUS EXAM: Oriented to himself and situation. Speech coherent, has some latency. Abstraction fair, computation impaired, language function intact. Mood and affect, lability is improved. LABORATORY DATA: Reviewed. IMPRESSION: Impulse control disorder, obsessive compulsive disorder; major neurocognitive disorder, early traumatic with delusion, depression. PLAN: Continue psychotropics mentioned in my initial note. Luvox was increased. MAN Ajay ERVIN MD DR: BRANDY/abdoulaye JOB#: [id number] / [id number]
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
[2017-05-31] MEDS ORDERED: diazePAM 2 MG TABLET PO SCH (09:00)
[2017-06-05] MEDS ORDERED: diazePAM 2 MG TABLET PO SCH (09:00)
== END 2017-05-27 15:00 | disposition home or self-care (01) | DRG 884 ==
LOC: ER 17:22 → GEROPSY 19:11
PROVIDERS: ADMIT Psychiatry & Neurology Psychiatry; ATTEND Psychiatry & Neurology Psychiatry
DX: F01.51 Vascular dementia, unspecified severity, with behavioral disturbance (principal); G30.9 Alzheimer's disease, unspecified; S09.90XA Unspecified injury of head, initial encounter; F02.81 Dementia in other diseases classified elsewhere, unspecified severity, with behavioral disturbance; F31.60 Bipolar disorder, current episode mixed, unspecified; G31.83 Neurocognitive disorder with Lewy bodies; M17.0 Bilateral primary osteoarthritis of knee; F22 Delusional disorders; F41.9 Anxiety disorder, unspecified; F07.81 Postconcussional syndrome; F42.9 Obsessive-compulsive disorder, unspecified; F63.9 Impulse disorder, unspecified; Z79.899 Other long term (current) drug therapy; Z87.820 Personal history of traumatic brain injury
CPT/HCPCS: 36415; 80053; 80061; 80164; 80307; 81001; 82306; 82607; 83036; 83540; 83550; 83735; 84436; 84443; 84480; 85025; 86593; 93005; G0480; 99285-25; G0479